=== PATIENT | male | born 1935 | race Caucasian/White ===

== ENCOUNTER 2019-12-19 11:14 | Observation (INO) | payer MEDICARE, BC ==
--- NOTE | 2019-12-19 11:31 | ED ---
Complex/Multi-Sys Presentation - HPI Summary HPI Summary: Pt. is an 84 y.o male who presents to the ER from dialysis for generalized weakness, nausea/vomiting. Pt. resides at home with his . Today was pt.'s first day of dialysis. Dialysis not performed. pt. has no complaints in the ED. Denies cp, sob, abd. pain, fever, cough. Sxs are moderate in severity. Past medical hx of HLD, GERD, DM, hypothyroid, atrial fluter. Anticoagulated on Eliquis. - History Of Current Complaint Chief Complaint: EDGeneral Time Seen by Provider: 12/19/19 11:26 Hx Obtained From: Patient, Medical Records - Allergies/Home Medications Allergies/Adverse Reactions: Allergies Allergy/AdvReac Type Severity Reaction Status Date / Time No Known Allergies Allergy Verified 12/19/19 11:47 Home Medications: Home Medications Acetaminophen TAB* [Tylenol TAB*] 325 mg PO Q6H PRN 12/19/19 [History Confirmed 12/19/19] Apixaban* [Eliquis*] 5 mg PO BID 12/19/19 [History Confirmed 12/19/19] Aspirin EC TAB* [Ecotrin EC Low Dose 81 MG*] 81 mg PO DAILY 12/19/19 [History Confirmed 12/19/19] Citalopram TAB* [CeleXA TAB*] 10 mg PO DAILY 12/19/19 [History Confirmed ] Dextran 70/Hypromellose Tears [Natural Balance Tears Eye Drop] 1 drop BOTH EYES BID 12/19/19 [History Confirmed 12/19/19] Docusate CAP* [Colace Cap*] 200 mg PO Q12H PRN 12/19/19 [History Confirmed 12/19] Epoetin Deepak-Epbx [Retacrit] 10,000 unit IV MOWEFR 12/19/19 [History Confirmed 12/19/19] Folic Acid TAB* [Folvite TAB*] 1 mg PO DAILY 12/19/19 [History Confirmed ] Insulin ASPART (NF) [Novolog 100 units/ml 10 ml VIAL (NF)] 0 units SUBCUT ACHS 12/19/19 [History Confirmed 12/19/19] Insulin GLARGINE(*) [Lantus 100 unist/ml 10 ml VIAL (*)] 30 units SUBCUT BEDTIME 12/19/19 [History Confirmed 12/19/19] Ipratropium/Albuterol Sulfate [Iprat-Albut 0.5-3(2.5) mg/3 ml] 3 ml INH Q4H PRN 12/19/19 [History Confirmed 12/19/19] Levothyroxine TAB* [Synthroid TAB*] 112 mcg PO DAILY 12/19/19 [History Confirmed 12/19/19] Omeprazole CAP (NF) [Prilosec CAP* 20 MG] 20 mg PO DAILY 12/19/19 [History Confirmed 12/19/19] Simvastatin TAB(NF) [Zocor(NF)] 20 mg PO BEDTIME 12/19/19 [History Confirmed 05/02] Tamsulosin CAP* [Flomax CAP*] 0.4 mg PO BEDTIME 12/19/19 [History Confirmed 05/02] hydrALAZINE TAB* [Apresoline TAB*] 10 mg PO TID 12/19/19 [History Confirmed 05/02] PMH/Surg Hx/FS Hx/Imm Hx Previously Healthy: Yes Infectious Disease History: No Infectious Disease History: Denies: Traveled Outside the [place] in Last 30 Days - Family History Known Family History: Positive: Non-Contributory - Social History Occupation: Retired Lives: With Family Alcohol Use: None Substance Use Type: Reports: None Smoking Status (MU): Former Smoker Review of Systems Constitutional: Negative Negative: Fever Cardiovascular: Negative Negative: Palpitations, Chest Pain Respiratory: Negative Negative: Shortness Of Breath, Cough Positive: Vomiting. Negative: Abdominal Pain, Diarrhea, Nausea Neurological: Negative All Other Systems Reviewed And Are Negative: Yes Physical Exam Triage Information Reviewed: Yes Vital Signs On Initial Exam: Initial Vitals Temp Pulse Resp BP Pulse Ox 97.9 F 59 22 131/56 92 12/19/19 11:23 12/19/19 11:23 12/19/19 11:23 12/19/19 11:23 12/19/19 11:23 Vital Signs Reviewed: Yes Appearance: Positive: Well-Appearing - Pt. sitting up in bed in NAD. Skin: Positive: Warm, Dry Eyes: Positive: Normal, EOMI, EDENILSON Neck: Positive: Supple Respiratory/Lung Sounds: Positive: Breath Sounds Present Cardiovascular: Positive: Normal, RRR Abdomen Description: Positive: Nontender, Soft Musculoskeletal: Negative: Edema Left, Edema Right Neurological: Positive: Normal, Alert, Oriented to Person Place, Time, CN Intact II-III Psychiatric: Positive: Affect/Mood Appropriate Procedures - Sedation Patient Received Moderate/Deep Sedation with Procedure: No Diagnostics - Vital Signs Vital Signs Temp Pulse Resp BP Pulse Ox 12/19/19 11:23 97.9 F 59 22 131/56 92 - Laboratory Result Diagrams: 12/19/19 11:51 12/19/19 11:51 Lab Statement: Any lab studies that have been ordered have been reviewed, and results considered in the medical decision making process. Complex Multi-Symp Course/Dx Course Of Treatment: ECG done at 1140 shows atrial flutter at a rate of 58, normal axis, 4:1 AV block, hyperacute t waves, no STEMI, no comparison. Pt. from dialysis for generalized weakness and episode of vomting. Afebrile. Stable BP. O2 saturation in low 90's on RA. No signs of respiratory distress. Spoke with dialysis clinic and they are unable to perform pt.'s dialysis today. Case discussed with Dr. Page, compliance representative, and she feels pt. okay to wait and start dialysis tomorrow. Case discussed with Dr. Oreilly who agrees for admission. - Diagnoses Provider Diagnoses: Generalized weakness, ESRD (end stage renal disease) Discharge ED - Sign-Out/Discharge Documenting (check all that apply): Patient Departure - Discharge Plan Condition: Stable Disposition: ADMITTED TO [facility] - Billing Disposition and Condition Condition: STABLE Disposition: Admitted to [facility] - Attestation Statements Provider Attestation: pt seen by midlevel provider independently, based on their assessment, it was not necessary for me to evaluate the patient but I was available for consultation. I did not form a physician-patient relationship with the patient. The chart however, has been reviewed.
[2019-12-19 12:02] LABS: ABS Eosinophils 0.1 10^3/ul (0-0.6); ABS Lymphocytes 1.2 10^3/ul (1.0-4.8); ABS Monocytes 0.8 10^3/ul (0-0.8); ABS Neutrophils 5.8 10^3/ul (1.5-7.7); Eosinophil % 1.1 %; Hematocrit 32 % (42-52); Hemoglobin 10.5 g/dL (14.0-18.0); Mean Corpuscular HGB Conc 33 g/dL (31-36); Mean Corpuscular Hemoglobin 29 pg (27-31); Mean Corpuscular Volume 88 fL (80-94); Mean Platelet Volume 8.5 fL (7.4-10.4); Platelet Count 230 10^3/uL (150-450); Red Blood Count 3.62 10^6 /uL (4.18-5.48); Red Cell Distribution Width 16 % (10-15); White Blood Count 7.9 10^3/uL (3.5-10.8)
[2019-12-19 12:13] LABS: Activated Partial Thrombo Time 33.9 seconds (26.0-38.0); INR 1.42 (0.82-1.09)
[2019-12-19 12:19] LABS: Albumin 3.1 g/dL (3.2-5.2); Albumin/Globulin Ratio 0.8 (1-3); Calcium 8.8 mg/dL (8.6-10.3); EGFR African American 8.9 (>60); EGFR Non-African American 7.3 (>60); Magnesium 2.2 mg/dL (1.9-2.7); Potassium 4.9 mmol/L (3.5-5.0); Total Bilirubin 0.7 mg/dL (0.2-1.0); Total Protein 7.1 g/dL (6.4-8.9)
[2019-12-19 12:21] LABS: Troponin I 0.02 ng/mL (<0.03)
[2019-12-19 12:35] LABS: TSH (Thyroid Stimulating Horm) 1.78 mcIU/mL (0.34-5.60)
[2019-12-19 13:50] LABS: Urine Appearance Cloudy; Urine Color Amber; Urine Ketones Negative (Negative); Urine Protein 1+(30 mg/dL) (Negative); Urine Urobilinogen Negative (Negative)
[2019-12-19 13:51] LABS: Urine Bilirubin Negative (Negative); Urine Blood 1+ (Negative); Urine Glucose Negative (Negative); Urine Nitrite Negative (Negative)
[2019-12-19 13:58] LABS: Urine Bacteria 1+ (Absent); Urine Transitional Epithelial Present (Absent); Urine White Blood Cell 1+(6-10/hpf) (Absent)
[2019-12-19] MEDS ORDERED: Acetaminophen TAB* 325 MG PO PRN ×2 (13:59→14:05)
[2019-12-19] MEDS ORDERED: Albuterol 2.5 MG/3 ML NEB.SOL* (0.083%) INH PRN (13:59)
[2019-12-19] MEDS ORDERED: Al Hydrox/Mg Hydrox/Simet LIQ* 30 ML UDC PO PRN (13:59)
[2019-12-19] MEDS ORDERED: Docusate CAP* 100 MG PO PRN (14:05)
[2019-12-19] MEDS ORDERED: Ondansetron INJ* 2 MG/ML VIAL IV PRN (14:08)
[2019-12-19] MEDS ORDERED: Dextrose 50% Syringe 50 ML* 25 GM/50 ML SYRINGE IV PUSH PRN (14:09)
--- NOTE | 2019-12-19 16:06 | HP ---
CC: Primary care provider; [facility] * HISTORY AND PHYSICAL: DATE OF ADMISSION: 12/19/19 PRIMARY CARE PROVIDER: Provider from [facility]. WORKERS' COMPENSATION HEARINGS OFFICER: The patient stated it is Lary Riley, but he was unable to give me the name. CHIEF COMPLAINT: An episode of nausea and vomiting. Of note, the patient himself does not remember what happened and he is not complaining of anything right now. HISTORY OF PRESENT ILLNESS: Jose Alberto Chacon is an 84-year-old male who was hospitalized at [facility], apparently started on dialysis and discharged to [facility] on 12/16/19. Just before his discharge , he was dialyzed and today was his first day of dialysis in [place]. He was brought in via [facility] to our dialysis suite. He was placed in the waiting room and when he was flipped over and vomited once, the nurse noted that he may not be fit for dialysis and sent him to the ED for evaluation. Here, he is comfortable, denies any pain or shortness of breath. He is a very poor historian. Please also note that the patient is a very poor historian likely due to dementia. I called to get medical records from [facility] that are all pending , but I spoke with the patient's nurse who is able to give me the information above. She also stated that the patient had nausea in the morning and he was given ODT Zofran prior to going to dialysis. He has had no problems overnight or prior to that. I also tried to call the patient's who resides in [place] and unfortunately when I called, there was no response. Either way, the patient missed his dialysis today and he appears to be in slight fluid overload on his chest x-ray with oxygen saturation 89% on room air and he is going to be placed on overnight observation to have inpatient dialysis before going back to [facility] tomorrow. PAST MEDICAL HISTORY: Obtained from the patient was very unreliable and includes: 1. End-stage renal disease, on dialysis with dialysis catheter placed recently in the left subclavian area. 2. Diabetes, type 2. 3. Hypertension. 4. Hypothyroidism. 5. BPH. 6. Coronary artery disease status post coronary artery bypass grafting in the past. 7. History of left knee replacement twice. 8. Right shoulder surgery. MEDICATIONS: At home include: 1. Simvastatin 20 mg at bedtime. 2. Epogen 10,000 units Mondays, Wednesdays, and Fridays. 3. Omeprazole 20 mg daily. 4. Insulin NovoLog sliding scale. 5. Levothyroxine 112 mcg daily. 6. Lantus 30 units at night. 7. Hydralazine 10 mg 3 times a day. 8. Flomax 0.4 mg at bedtime. 9. Folic acid 1 mg daily. 10. Eliquis 5 mg b.i.d., which appears to be higher than recommended dose for the patient with end-stage renal disease with an age of [age] years old. 11. Colace 200 mg every 12 hours p.r.n. 12. Celexa 10 mg daily. 13. Natural Balance Tears eye drops 1 drop both eyes b.i.d. 14. Aspirin 81 mg daily. 15. Acetaminophen on a p.r.n. basis. ALLERGIES: No known drug allergies. FAMILY HISTORY: The patient stated both parents in their 80s of "old age. " SOCIAL HISTORY: The patient stated that he has not smoked "ever since World War II." He drinks rarely. He denies any drug use. He lives in [place] with his . Currently, he is a resident at [facility]. The patient himself is not aware that he is at [facility]. He thinks he lives at [place] and he is unsure how he got to our dialysis unit. REVIEW OF SYSTEMS: Please see history of present illness. All the remaining 12 systems were reviewed with the patient and were otherwise negative. He is a very poor historian. PHYSICAL EXAMINATION GENERAL: The patient is a pleasant 84-year-old male who knows that he is 84 years old, he does not know the date, he does not know why he is here, and he is aware that he is in the hospital, but does not know which. He is pleasant and cooperative with evaluation. VITAL SIGNS: Blood pressure of 179/80, heart rate of 58 and regular, respiratory rate 24, oxygen saturation 89% on room air, temperature of 97.9. HEENT: Head: Atraumatic, normocephalic. Eyes: Pupils are equal, reactive to light and accommodation. Oropharynx clear. Mucosa moist. NECK: Supple. No JVD. No bruits bilaterally. RESPIRATORY: Crackles at bilateral bases. CARDIOVASCULAR: Regular rate and rhythm. No murmur. ABDOMEN: Distended mildly, soft, nontender. Bowel sounds are present in all 4 quadrants. EXTREMITIES: There is no edema. Pulses are +2 bilaterally. No clubbing or cyanosis. NEUROLOGIC: On neuro evaluation, speech clear. Cranial nerves II through XII grossly intact. Motor strength is 5/5 bilaterally. SKIN: On evaluation of the skin, the patient has left-sided subclavian port inserted for dialysis, covered with postop dressings. No evidence of skin infection around. DIAGNOSTIC STUDIES/LAB DATA: Laboratory data and studies performed in the ED showed, EKG shows atrial fibrillation with a heart rate of 58 beats per minute. I was not able to compare to prior EKGs as we do not have any in the system. The patient's portable chest x-ray, impression, "low lung volumes, lines and tubes as above, no active cardiopulmonary disease." Lab tests showed sodium of 129, potassium of 4.9, chloride 94, carbon dioxide 24 , BUN 15, creatinine 0.16. Liver function tests unremarkable. Alkaline phosphatase of 137, AST mildly elevated at 41. Brain natriuretic peptide was 123. TSH of 1.7. White blood cell count of 7.9, hemoglobin 10.5, hematocrit of 32, and platelets of 230. INR of 1.42. ASSESSMENT AND PLAN: 1. Nausea and vomiting. At this point, the patient complains of no further nausea and vomiting. We will attempt to start diet and see how he behaves. He probably would be able to be discharged to [facility], but he is slightly hypoxemic and he needs dialysis. Unfortunately, he missed his dialysis spot today and he would not be able to get to dialysis until tomorrow inpatient. For the hypoxemia, he is going to be held observation overnight. He will be dialyzed tomorrow and likely go back to [facility]. 2. The hypoxemia is likely due to vascular congestion related to need of dialysis. 3. For his diabetes, the patient is going to be placed on lower dose of insulin Lantus at night. The patient is going to be continued on insulin sliding scale. 4. For his atrial flutter that is rate controlled, the patient's apixaban is going to be changed to a dose of 2.5 b.i.d. as per recommendations for patients with renal failure and advanced age. 5. The patient is slightly hyponatremic. Likely due to the need of dialysis. I will not attempt to correct that. That could be corrected with dialysis tomorrow. 6. The patient has anemia. Likely due to end-stage renal disease. He is on Epogen with every dialysis. 7. The patient's altered mentation appears to be chronic. I was unable to confirm it. I am getting medical records from [facility]. I will get CT of the brain to rule out any acute issues since the patient is on anticoagulation. 8. For DVT prophylaxis, the patient is going to be placed on Eliquis. 9. The patient's code status for the time being is going to be full. I was unable to contact the patient's to clarify it and we have not received any medical records from [facility] yet. TIME SPENT: Approximately 72 minutes was spent on admission of this patient, more than half of that time was spent [id number] with the patient during the interview and physical exam. [id number]/[facility] #: [id number] EDUAR
[2019-12-19] MEDS: Insulin LISPRO* 1 UNITS UNIT SUBCUT SCH ×2 (17:50→21:51)
[2019-12-19] MEDS ORDERED: Tamsulosin CAP* 0.4 MG PO SCH (21:00)
[2019-12-19] MEDS ORDERED: Insulin GLARGINE(*) 1 UNITS UNIT SUBCUT SCH ×2 (21:00)
[2019-12-19] MEDS: hydrALAZINE TAB* 10 MG PO SCH (21:52)
[2019-12-19] MEDS: Dextran 70/Hypromellose Tears Eye Drops 15 ml BTL (for Artificials Tears) BOTH EYES SCH (21:55)
[2019-12-20] MEDS ORDERED: Levothyroxine TAB* 112 MCG TAB PO SCH (06:00)
[2019-12-20 06:35] LABS: ABS Basophils 0.1 10^3/ul (0-0.2); ABS Eosinophils 0.2 10^3/ul (0-0.6); ABS Lymphocytes 1.4 10^3/ul (1.0-4.8); ABS Monocytes 0.6 10^3/ul (0-0.8); ABS Neutrophils 3.6 10^3/ul (1.5-7.7); Eosinophil % 2.6 %; Hematocrit 31 % (42-52); Hemoglobin 10.1 g/dL (14.0-18.0); Lymphocyte % 23.8 %; Mean Corpuscular HGB Conc 33 g/dL (31-36); Mean Corpuscular Hemoglobin 29 pg (27-31); Mean Corpuscular Volume 88 fL (80-94); Mean Platelet Volume 8.2 fL (7.4-10.4); Platelet Count 218 10^3/uL (150-450); Red Blood Count 3.46 10^6 /uL (4.18-5.48); Red Cell Distribution Width 16 % (10-15); White Blood Count 5.9 10^3/uL (3.5-10.8)
[2019-12-20 07:10] LABS: BUN/Creatinine Ratio 6.9 (8-20); Calcium 8.6 mg/dL (8.6-10.3); EGFR African American 7.4 (>60); EGFR Non-African American 6.1 (>60); Potassium 4.8 mmol/L (3.5-5.0)
[2019-12-20] MEDS ORDERED: Folic Acid TAB* 1 MG PO SCH (09:00)
[2019-12-20] MEDS ORDERED: Aspirin EC TAB* 81 MG TAB.EC PO SCH (09:00)
[2019-12-20] MEDS ORDERED: Pantoprazole TAB * 40 MG TAB PO SCH (09:00)
[2019-12-20] MEDS ORDERED: Citalopram TAB* 10 MG PO SCH (09:00)
[2019-12-20] MEDS: hydrALAZINE TAB* 10 MG PO SCH ×2 (09:36→15:19)
[2019-12-20] MEDS: Insulin LISPRO* 1 UNITS UNIT SUBCUT SCH ×3 (09:36→19:22)
[2019-12-20] MEDS: Dextran 70/Hypromellose Tears Eye Drops 15 ml BTL (for Artificials Tears) BOTH EYES SCH (09:37)
--- NOTE | 2019-12-20 10:51 | CONSULT ---
Consult Consult: Reason for consult: ESRD need for HD Requesting consult: Dr. Sandy Oreilly MD History of present illness: Mr. Chacon is a very nice 84 yo gentleman who was transferred to [facility] HD center yesterday , after being hospitalized at [facility]. He was started on HD during this hospitalization , and [facility] Previously he was living at home with his . his first dialysis treatment was supposed to be yesterday. when he arrived at the dialysis unit, he was sick, nauseous and throwing up so the dialysis staff send him to the ER for evaluation. he is a new patient to me , he has not been a patient of [facility]. patient is not a good historian. history taken from discussions with Dr. Oreilly and review of medical records. he states that he has a history of DM and HTN , also CAD s/p CABG. 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 Hypertension End-stage kidney disease. He has a permanent catheter placed in the left subclavian area is an access. Hypothyroidism BPH Coronary artery disease. Past surgical history Left knee replacement twice Coronary artery bypass grafting Family history: Both parents of old age in their 80s He has a son with diabetes mellitus type 2 He has 4 siblings and they are all healthy per his recollection Social History: Currently he lives at [facility] in [place]. Previously he was living at home with his . He is a previous smoker. He smoked for a short period of time when he was young. He has not smoked "since World War II" drinks occasionally. No recreational drugs. Allergies: NKDA Home Medications Medication Instructions Recorded Confirmed Type Acetaminophen TAB* [Tylenol TAB*] 325 mg PO Q6H PRN 12/19/19 12/19/19 History Aspirin EC TAB* [Ecotrin EC Low 81 mg PO DAILY 12/19/19 12/19/19 History Dose 81 MG*] Citalopram TAB* [Celexa TAB*] 10 mg PO DAILY 12/19/19 12/19/19 History Dextran 70/Hypromellose Tears 1 drop BOTH EYES BID 12/19/19 12/19/19 History [Natural Balance Tears Eye Drop] Docusate CAP* [Colace Cap*] 200 mg PO Q12H PRN 12/19/19 12/19/19 History Epoetin Deepak-Epbx [Retacrit] 10,000 unit IV MOWEFR 12/19/19 12/19/19 History Folic Acid TAB* [Folvite TAB*] 1 mg PO DAILY 12/19/19 12/19/19 History Insulin ASPART (NF) [Novolog 100 0 units SUBCUT ACHS 12/19/19 12/19/19 History units/ml 10 ml VIAL (NF)] Insulin GLARGINE(*) [Lantus 100 30 units SUBCUT BEDTIME 12/19/19 12/19/19 History unist/ml 10 ml VIAL (*)] Ipratropium/Albuterol Sulfate 3 ml INH Q4H PRN 12/19/19 12/19/19 History [Iprat-Albut 0.5-3(2.5) mg/3 ml] Levothyroxine TAB* [Synthorid 112 112 mcg PO DAILY 12/19/19 12/19/19 History MCG TAB*] Omeprazole CAP (NF) [Prilosec CAP* 20 mg PO DAILY 12/19/19 12/19/19 History 20 MG] Simvastatin TAB(NF) [Zocor 20 MG 20 mg PO BEDTIME 12/19/19 12/19/19 History (NF)] Tamsulosin CAP* [Flomax CAP*] 0.4 mg PO BEDTIME 12/19/19 12/19/19 History hydrALAZINE TAB* [Apresoline TAB*] 10 mg PO TID 12/19/19 12/19/19 History Apixaban* [Eliquis*] 2.5 mg PO BID #0 12/20/19 12/19/19 Rx hospital active medications: Acetaminophen (Tylenol Tab*) 650 mg PO Q4H PRN PRN Reason: SHORTNESS OF BREATH Acetaminophen (Tylenol Tab*) 325 mg PO Q6H PRN PRN Reason: PAIN-MODERATE/TEMP >/= 100.4 Al Hydrox/Mg Hydrox/Simethicone (Maalox Plus*) 30 ml PO Q6H PRN PRN Reason: INDIGESTION Albuterol (Ventolin 2.5 Mg/3 Ml Neb.Frida*) 2.5 mg INH [id number] AWAKE PRN PRN Reason: sob/wheezing Artificial Tears (Natural Balance Tears Eye Drop) 1 drop BOTH EYES BID [facility] Last Admin: 12/20/19 09:37 Dose: 1 drop Aspirin (Aspirin Ec Tab*) 81 mg PO DAILY [facility] Last Admin: 12/20/19 09:36 Dose: 81 mg Citalopram Hydrobromide (Celexa Tab*) 10 mg PO DAILY [facility] Last Admin: 12/20/19 09:36 Dose: 10 mg Dextrose (D50w Syringe 50 Ml*) 12.5 gm IV PUSH .FOR FS < 60 - SS PRN PRN Reason: FS < 60 Docusate Sodium (Colace Cap*) 200 mg PO Q12H PRN PRN Reason: CONSTIPATION Folic Acid (Folvite Tab*) 1 mg PO DAILY [facility] Last Admin: 12/20/19 09:36 Dose: 1 mg Hydralazine HCl (Apresoline Tab*) 10 mg PO TID [facility] Last Admin: 12/20/19 09:36 Dose: 10 mg Insulin Glargine (Lantus(*)) 20 units SUBCUT BEDTIME [facility] Last Admin: 12/19/19 21:49 Dose: 20 unit Insulin Human Lispro (Humalog*) 0 units SUBCUT ACHS [facility]; Protocol Last Admin: 12/20/19 09:36 Dose: 4 unit Levothyroxine Sodium (Synthroid Tab*) 112 mcg PO DAILY@0600 [facility] Last Admin: 12/20/19 05:40 Dose: 112 mcg Ondansetron HCl (Zofran Inj*) 4 mg IV Q8H PRN PRN Reason: NAUSEA Pantoprazole Sodium (Protonix Tab*) 40 mg PO DAILY [facility] Last Admin: 12/20/19 09:36 Dose: 40 mg Tamsulosin HCl (Flomax Cap*) 0.4 mg PO BEDTIME [facility] Last Admin: 12/19/19 21:52 Dose: 0.4 mg Physical exam: Temp Pulse Resp BP SpO2 FiO2 97.5 F 58 16 123/52 100 12/20/19 07:24 12/20/19 07:24 12/20/19 08:00 12/20/19 07:24 12/20/19 07:24 Constitutional: lying in bed during dialysis in no acute distress, pleasant and conversant. Head: Atraumatic and normocephalic. Nose, lips and ears appear normal. Eyes: moist conjunctivae, no ptosis, pupils are equal. Neck: Supple, full range of motion, non-tender, no masses, trachea midline, no thyromegaly. Respiratory: Chest is clear to auscultation with good respiratory effort. Cardiovascular: Heart auscultation shows normal S1-S2, regular rate and rhythm, no murmur rubs or gallops. No peripheral edema. Gastrointestinal: Abdomen is soft, nontender and nondistended. No hepatosplenomegaly or masses appreciated. Musculoskeletal: No digital cyanosis or clubbing. No joint swelling or tenderness. Skin: No skin rashes, ulcers or lesions. changes of stasis dermatitis in both lower extremities below the knees. Normal turgor and temperature. Neurologic: Speech fluent But soft, no tremor, grossly nonfocal. Psychiatric: Appropriate affect, alert and oriented 3, poor memory Laboratory Last Values WBC 5.9 10^3/uL (3.5-10.8) 12/20/19 06:08 RBC 3.46 10^6 /uL (4.18-5.48) L 12/20/19 06:08 Hgb 10.1 g/dL (14.0-18.0) L 12/20/19 06:08 Hct 31 % (42-52) L 12/20/19 06:08 MCV 88 fL (80-94) 12/20/19 06:08 MCH 29 pg (27-31) 12/20/19 06:08 MCHC 33 g/dL (31-36) 12/20/19 06:08 RDW 16 % (10-15) H 12/20/19 06:08 Plt Count 218 10^3/uL (150-450) 12/20/19 06:08 MPV 8.2 fL (7.4-10.4) 12/20/19 06:08 Neut % (Auto) 61.3 % 12/20/19 06:08 Lymph % (Auto) 23.8 % 12/20/19 06:08 Dunn % (Auto) 10.9 % 12/20/19 06:08 Eos % (Auto) 2.6 % 12/20/19 06:08 Baso % (Auto) 1.4 % 12/20/19 06:08 Absolute Neuts (auto) 3.6 10^3/ul (1.5-7.7) 12/20/19 06:08 Absolute Lymphs (auto) 1.4 10^3/ul (1.0-4.8) 12/20/19 06:08 Absolute Monos (auto) 0.6 10^3/ul (0-0.8) 12/20/19 06:08 Absolute Eos (auto) 0.2 10^3/ul (0-0.6) 12/20/19 06:08 Absolute Basos (auto) 0.1 10^3/ul (0-0.2) 12/20/19 06:08 Absolute Nucleated RBC 0.0 10^3/ul 12/20/19 06:08 Nucleated RBC % 0.0 12/20/19 06:08 INR (Anticoag Therapy) 1.42 (0.82-1.09) H 12/19/19 11:51 APTT 33.9 seconds (26.0-38.0) 12/19/19 11:51 Sodium 131 mmol/L (135-145) L 12/20/19 06:08 Potassium 4.8 mmol/L (3.5-5.0) 12/20/19 06:08 Chloride 95 mmol/L (101-111) L 12/20/19 06:08 Carbon Dioxide 24 mmol/L (22-32) 12/20/19 06:08 Anion Gap 12 mmol/L (2-11) H 12/20/19 06:08 BUN 58 mg/dL (6-24) H 12/20/19 06:08 Creatinine 8.41 mg/dL (0.67-1.17) H 12/20/19 06:08 Est GFR ( Amer) 7.4 (>60) 12/20/19 06:08 Est GFR (Non-Af Amer) 6.1 (>60) 12/20/19 06:08 BUN/Creatinine Ratio 6.9 (8-20) L 12/20/19 06:08 Glucose 184 mg/dL (70-100) H 12/20/19 06:08 POC Glucose (mg/dL) 202 mg/dL (70-100) H 12/20/19 08:15 Lactic Acid 1.4 mmol/L (0.5-2.0) 12/19/19 11:51 Calcium 8.6 mg/dL (8.6-10.3) 12/20/19 06:08 Magnesium 2.2 mg/dL (1.9-2.7) 12/19/19 11:51 Total Bilirubin 0.70 mg/dL (0.2-1.0) 12/19/19 11:51 AST 41 U/L (13-39) H 12/19/19 11:51 ALT 36 U/L (7-52) 12/19/19 11:51 Alkaline Phosphatase 137 U/L (34-104) H 12/19/19 11:51 Troponin I 0.02 ng/mL (<0.03) 12/19/19 11:51 B-Natriuretic Peptide 223 pg/mL (<=100) H 12/19/19 11:51 Total Protein 7.1 g/dL (6.4-8.9) 12/19/19 11:51 Albumin 3.1 g/dL (3.2-5.2) L 12/19/19 11:51 Globulin 4.0 g/dL (2-4) 12/19/19 11:51 Albumin/Globulin Ratio 0.8 (1-3) L 12/19/19 11:51 TSH 1.78 mcIU/mL (0.34-5.60) 12/19/19 11:51 Urine Color Maura 12/19/19 13:02 Urine Appearance Cloudy 12/19/19 13:02 Urine pH 5 (5-9) 12/19/19 13:02 Ur Specific Hewitt 1.030 (1.010-1.030) 12/19/19 13:02 Urine Protein 1+(30 mg/dl) (Negative) A 12/19/19 13:02 Urine Ketones Negative (Negative) 12/19/19 13:02 Urine Blood 1+ (Negative) A 12/19/19 13:02 Urine Nitrate Negative (Negative) 12/19/19 13:02 Urine Bilirubin Negative (Negative) 12/19/19 13:02 Urine Urobilinogen Negative (Negative) 12/19/19 13:02 Ur Leukocyte Esterase 1+ (Negative) A 12/19/19 13:02 Urine WBC (Auto) 1+(6-10/hpf) (Absent) A 12/19/19 13:02 Ur Transition Epith Cell Present (Absent) A 12/19/19 13:02 Urine Bacteria 1+ (Absent) A 12/19/19 13:02 Urine Glucose Negative (Negative) 12/19/19 13:02 Assessment and plan: 1. End-stage kidney disease secondary to diabetes mellitus type 2 and hypertension. Arranged for in house hemodialysis today. 2. Hypertension well controlled with no changes 3. Diabetes mellitus type 2 per primary 4. Dementiamild 5. GI upset/nausea. This resolved with medical management. Doubt that this was related to uremia.
[2019-12-20] MEDS ORDERED: Alteplase (CATHFLO)* 2 MG VIAL IV ONE (11:00)
--- NOTE | 2019-12-20 11:34 | TRS ---
TRANSFER SUMMARY: DATE OF ADMISSION: DATE OF TRANSFER: 12/20/19 HISTORY: This 84-year-old man is a resident of [facility]. He was admitted there onl y on 12/16/19. He was started on dialysis at [facility] in the past month I believe. His first day of dialysis in [place] was 12/19/19 in the dialysis suite, he vomited and he was sent to the ED for evaluation. The patient is a poor historian due to dementia. He was able to give some histo ry, but was very hazy about dates and his medical history. The patient did well here. He was given his usual medications. He is going to have hemodialysis in the hospital before discharge. He had no more nausea and vomiting. He ate breakfast well. Possibly, he has diabetic gastropathy, which may occur every now and then. I have adjusted his apixaban dose because his age is over 80 and his creatinine is over 1.5. I would recommend 2.5 mg b.i.d. I am not sure what the indication for apixaban is. We do not have any adilia rds and the patient could not answer that question either. FINAL DIAGNOSES: 1. Nausea and vomiting, possible diabetic gastropathy. 2. End-stage renal disease, on hemodialysis. 3. Diabetes. 4. Hypertension. 5. Hypothyroidism. 6. Dementia. 7. Benign prostatic hyperplasia. 8. Coronary artery disease status post coronary artery bypass graft. 9. Osteoarthritis, status post left knee replacement x2. DISCHARGE MEDICATIONS: 1. Simvastatin 20 mg h.s. 2. Epoetin 10,000 units Monday, Monday, and Monday. 3. Omeprazole 20 mg daily. 4. NovoLog insulin per schedule. 5. Levothyroxine 112 mcg daily. 6. Glargine insulin 30 units at bedtime. 7. Ipratropium albuterol 3 mL every 4 hours p.r.n. 8. Hydralazine 10 mg t.i.d. 9. Tamsulosin 0.4 mg h.s. 10. Folic acid 1 mg daily. 11. Docusate 200 mg b.i.d. p.r.n. 12. Citalopram 10 mg daily. 13. Natural Balance Tears eye drops, 1 drop both eyes b.i.d. 14. Aspirin 81 mg daily. 15. Acetaminophen every 6 hours p.r.n. 16. Apixaban 2.5 mg b.i.d. CONDITION ON DISCHARGE: Stable. DISPOSITION ON DISCHARGE: Discharged to return to [facility]. [id number]/[facility] #: [id number]
--- NOTE | 2019-12-20 12:38 | PN ---
Progress Note - Progress Note Date of Service: 12/20/19 Note: chief complaint: End-stage kidney disease now initiated on dialysis. Interval history: Patient admitted for GI upset. This cleared since admission. Receiving hemodialysis today because of his lost treatment yesterday. For full history please refer to previously entered consult. 1. End-stage kidney disease secondary to diabetes mellitus type 2 and hypertension. Newly started on dialysis. Hemodialysis today as he missed his treatment yesterday. I saw the patient during dialysis he was stable but with poor catheter function when and the line were reversed. Decided to lock the catheter with TPA for half an hour and restart dialysis. 2000 units bolus of heparin. Discusses dialysi, 2.5 calcium, sodium 140, bicarb 32, temperature 36, 2 L volume removal. Patient is stable and pleasant at the time of my exam.
[2019-12-20 15:24] VITALS: BP 118/45
--- NOTE | 2019-12-20 16:27 | TRS ---
TRANSFER SUMMARY ADDENDUM Dialysis runs very poorly due to low flow in his catheter. Dr. Page consulted on him. He will come b ack to the hospital, to [facility] on 12/23/19 at 7:30. He is to be n.p.o. after midnight th e night before. He will not take any apixaban over the weekend, but this can be resumed at the recomm ended dose of 2.5 mg b.i.d. following the procedure. His Lantus dose has been adjusted downward quite a bit here. Depending on how he responding to the lower dose, the dose may be reduced further on 08/02, the day before his procedure of 12/23/19 as he will be n.p.o. after midnight for the procedure on 12/23/19. His next dialysis treatment will be 12/24/19. [id number]/[facility] #: [id number]
--- NOTE | 2019-12-22 13:56 | ED ---
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 RN states will pass on all information to provider Currently states pt is asymptomatic, VS stable and has had no fevers Patient Communication/Plan: Discussed with RN I recommend catheter change Recommend antibiotics only if pt symptomatic and to return to the ED if so - Faxed culture sheet to Jose Bryant Provider Diagnoses: Generalized weakness, ESRD (end stage renal disease)
== END 2019-12-20 17:30 ==
LOC: ED 11:14 → MED 13:59
PROVIDERS: ADMIT Internal Medicine; ATTEND Internal Medicine
DX: R11.2 Nausea with vomiting, unspecified (principal); I12.0 Hypertensive chronic kidney disease with stage 5 chronic kidney disease or end stage renal disease; E11.22 Type 2 diabetes mellitus with diabetic chronic kidney disease; N18.6 End stage renal disease; E03.9 Hypothyroidism, unspecified; N40.0 Benign prostatic hyperplasia without lower urinary tract symptoms; I25.10 Atherosclerotic heart disease of native coronary artery without angina pectoris; K21.9 Gastro-esophageal reflux disease without esophagitis; Z79.4 Long term (current) use of insulin; E78.5 Hyperlipidemia, unspecified; I48.92 Unspecified atrial flutter; Z79.01 Long term (current) use of anticoagulants; Z79.899 Other long term (current) drug therapy; Z96.652 Presence of left artificial knee joint; Z79.82 Long term (current) use of aspirin; Z99.2 Dependence on renal dialysis; Z95.5 Presence of coronary angioplasty implant and graft; Z87.891 Personal history of nicotine dependence; Z79.890 Hormone replacement therapy; R94.31 Abnormal electrocardiogram [ECG] [EKG]
CPT/HCPCS: 36415; 70450; 71045; 80048; 80053; 81003; 81015; 83605; 83735; 83880; 84443; 84484; 85025; 85610; 85730; 87077; 87086; 87186; 87641; 93005; 99284; A9270-GY; G0378; J2997

== ENCOUNTER → 2019-12-23 11:36 | Day surgery (SDC) | payer BC, MEDICARE ==
[~2019-12-23 11:36] MED LIST: Clindamycin 600 MG/D5W BAG(*) 600 MG/50 ML BAG IV ONE; Heparin 2 UNITS/ML IVPREMIX* 1,000 ML IV ONE; Lidocaine 1% INJ* 10 MG/ML 30 ML SDV ONE; Midazolam* 1 MG/ML 5 ML VIAL (5 MG) ONE; fentaNYL* 50 MCG/ML 2 ML VIAL (100 MCG VIAL) ONE
--- NOTE | 2019-12-23 14:40 | OP ---
Operative Report - Blank - Operative Report Date of Operation: 12/23/19 Note: Procedure Note Tunneled HD Catheter placement Note: Performed by Dr. Tiff Perez, [facility] Nephrology 12/23/2019 Right Internal Jugular Tunneled Hemodialysis Catheter Placement Note: Procedure indication: ESRD, needs Hemodialysis assisted Access. Consent was obtained, in chart. Patient understands risks, benefits, alternatives and wants to proceed. Rt IJV patency was checked by US. Following strict hand hygiene and standard sterile precautions, a full sterile attire for myself and all personnel involved in the procedure, including a gown , cap, face mask with an eye shield, and double sterile gloves. The procedure started with 2 ID time out after marking the new proposed venotomy site. Patient was put in Trendelenburg position. Vascular US was used during the procedure. Right Neck and Chest were prepped with 2% Chlorhexidine, and the surgical field was surrounded by sterile surgical towels. A sterile full body drape was placed to cover the patient from head to toe. Rt IJ was chosen. Under real time US guidance the Rt IJV was accessed by a 21-G needle, then a 0.018 micro wire was threaded through the 21-G needle into the vein and the 21- G needle was pulled out, leaving the micro wire in, confirmed in the IJ-SVC by Fluoro, then a 4-Fr sheath and inner stylet were passed over the micro wire into the vein. Both, the micro wire and the inner stylet were removed and the 4- Fr sheath was kept in place. Then, a 0.035 Amplatz wire was passed through the 4 -Fr sheath into the central circulation, confirmed by Fluoro in the Rt Atrium. Skin near the venotomy was nicked using # 11 Blade and extended to 0.5 cm long, then was dilated using a curved Sonia. Bleeding was controlled by pressure over the dilated venotomy site. A 19 cm GlidePath TDC was chosen. The proposed tunnel & exit site were numbed thoroughly with 10 cc of 1% Lidocaine w/o Epi. The exit site was created using # 11 Blade and extended to 0.5 cm long. Exit was dissected bluntly using a curved Sonia. A blunt tunneler was bent and used to pull the GlidePath TDC from the exit site to the venotomy site and was placed just behind the 5-Fr sheath Sequential dilatation of the venotomy using 12 then 14 Fr the 16 Fr dilator and peel away sheath after the 5-Fr sheath was removed. Dilator and wire were removed and the 19 cm GlidePath TDC was fed through the peel away sheath that was peel away carefully. Tip of TDC Catheter seen under Fluoro at the Cavo- atrial junction to Rt Atrium Both ports checked for flow and draw and both worked very well then flushed again with saline and locked with 1:100 in each port. Caps were applied over both ports. The catheter was secured and tethered in place using 2-0 Proline sutures at the exit site. A retention suture was placed using 2-0 Proline too as he was oozing from the exit site. The venotomy site was repaired using 3-0 Vicryl. Complications: None Estimated Bleeding: < 5cc Fluoro Time: 0.1 min IV Contrast: Zero Radiation Exposure: 1 mGy Pre Op Meds: Clindamycin 600 mg IVPB pre Op. Fentanyl: Zero Versed: Zero
--- NOTE | 2019-12-23 14:42 | OP ---
Operative Report - Blank - Operative Report Date of Operation: 12/23/19 Note: Procedure Note Tunneled HD Catheter Removal Note: Performed by Dr. Tiff Perez, [facility] Nephrology 12/23/2019 Left Internal Jugular Tunneled Hemodialysis Catheter Removal Note: Procedure indication: ESRD, Access dysfunctional needs a new access. Consent was obtained Right Internal Jugular Tunneled Hemodialysis Catheter Removal Note: Following strict hand hygiene and standard sterile precautions, using a cap, face mask with an eye shield, and double sterile gloves. Neck and Chest were prepped with 2% Chlorhexidine. Skin over exit site and tunnel were numbed thoroughly using 30 cc of 1% Lidocaine, then using a curved Sonia, the exit site was bluntly dissected and the cuff was freed easily from the fibrin sheath around it. The TDC was pulled out easily. Bleeding was controlled and pressure was applied for 5 min at the exit site and the venotomy. Complications: None Estimated Bleeding: < 5cc Patient tolerated the procedure well.
[2019-12-23 16:04] VITALS: BP 129/60
== END | disposition home or self-care (01) ==
LOC: CHICATH 11:36
PROVIDERS: ATTEND Internal Medicine Nephrology
DX: T82.898A Other specified complication of vascular prosthetic devices, implants and grafts, initial encounter (principal); N18.6 End stage renal disease; I12.0 Hypertensive chronic kidney disease with stage 5 chronic kidney disease or end stage renal disease; E11.22 Type 2 diabetes mellitus with diabetic chronic kidney disease; Z79.4 Long term (current) use of insulin; Z95.1 Presence of aortocoronary bypass graft; E03.9 Hypothyroidism, unspecified
CPT/HCPCS: 36558; 71045; 76937; 77001; C1750; C1769; J1642; J1644; J2250; J3010

== ENCOUNTER 2020-02-01 12:09 | Inpatient (IN) | payer MEDICARE, BC ==
--- NOTE | 2020-02-01 12:23 | ED ---
Altered Mental Status - HPI Summary HPI Summary: This patient is an 84 year old male [facility] to [facility] with a chief complaint of low BP. EMS reports patient was at dialysis treatment when they noted he had a blood pressure of 80 systolic and called for EMS. EMS states penitentiary said he has altered mental status, EMS states he was responding with moans which may be his baseline. They state he had an elevated temp of 100 at dialysis, that he was screened two times earlier this week by them with no fever. This patient is a level 5 caveat due to altered mental status. - History Of Current Complaint Stated Complaint: LOW BP PER EMS Time Seen by Provider: 02/01/20 12:11 Hx Obtained From: EMS Timing: Lasting Hours - Allergies/Home Medications Allergies/Adverse Reactions: Allergies Allergy/AdvReac Type Severity Reaction Status Date / Time No Known Allergies Allergy Verified 12/19/19 11:47 Home Medications: Home Medications Acetaminophen TAB* [Tylenol TAB*] 325 mg PO Q6H PRN 12/19/19 [History Confirmed 02/01/20] Aspirin EC TAB* [Ecotrin EC Low Dose 81 MG*] 81 mg PO DAILY 12/19/19 [History Confirmed 02/01/20] Citalopram TAB* [Celexa TAB*] 10 mg PO DAILY 12/19/19 [History Confirmed ] Dextran 70/Hypromellose Tears [Natural Balance Tears Eye Drop] 1 drop BOTH EYES BID 12/19/19 [History Confirmed 02/01/20] Folic Acid TAB* [Folvite TAB*] 1 mg PO DAILY 12/19/19 [History Confirmed ] Insulin GLARGINE(*) [Lantus 100 units/ml 10 ml VIAL (*)] 30 units SUBCUT BEDTIME 12/19/19 [History Confirmed 02/01/20] Ipratropium/Albuterol Sulfate [Iprat-Albut 0.5-3(2.5) mg/3 ml] 3 ml INH Q4H PRN 12/19/19 [History Confirmed 02/01/20] Levothyroxine TAB* [Synthorid 112 MCG TAB*] 112 mcg PO DAILY 12/19/19 [History Confirmed 02/01/20] Omeprazole CAP (NF) [Prilosec CAP* 20 MG] 20 mg PO DAILY 12/19/19 [History Confirmed 02/01/20] Simvastatin TAB(NF) [Zocor 20 MG (NF)] 20 mg PO BEDTIME 12/19/19 [History Confirmed 02/01/20] Tamsulosin CAP* [Flomax CAP*] 0.4 mg PO BEDTIME 12/19/19 [History Confirmed ] hydrALAZINE TAB* [Apresoline TAB*] 10 mg PO TID 12/19/19 [History Confirmed ] Insulin Lispro [Humalog Kwikpen 100 units/ml 3 ml x 5 Pens] 0 unit SUBCUT .SEE INSTRUCTIONS 02/01/20 [History Confirmed 02/01/20] Nystatin SUSPENSION* [Nystatin*] 100,000 unit MT QID 02/01/20 [History Confirmed 02/01/20] PMH/Surg Hx/FS Hx/Imm Hx Endocrine/Hematology History: Reports: Hx Diabetes Cardiovascular History: Reports: Hx Coronary Artery Disease, Hx Hypertension History: Reports: Hx Chronic Renal Failure Sensory History: Denies: Hx Contacts or Glasses, Hx Hearing Aid Opthamlomology History: Denies: Hx Contacts or Glasses - Family History Known Family History: Positive: Non-Contributory - Social History Alcohol Use: None Substance Use Type: Reports: None Smoking Status (MU): Former Smoker - Additional Comments History Additional Comments: PMHx Level 5 caveat due to AMS. Review of Systems Positive: Fever - 100 F Positive: Other - Hypotensive Neurological/Mental Status: Other - AMS All Other Systems Reviewed And Are Negative: No - Comments Additional Review of Systems Comments: This patient is a level 5 caveat due to AMS. Physical Exam - Summary Physical Exam Summary: Appearance: The patient is well-nourished in no acute distress and in no acute pain. Skin: The skin is warm and dry and skin color reflects adequate perfusion. HEENT: The head is normocephalic and atraumatic. The pupils are equal and reactive. The conjunctivae are clear and without drainage. Nares are patent and without drainage. Mouth reveals Dry mucous membranes, and the throat is without erythema and exudate. The external ears are intact. The ear canals are patent and without drainage. The tympanic membranes are intact. Neck: The neck is supple with full range of motion and non-tender. There are no carotid bruits. There is no neck vein distension. Respiratory: Chest is non-tender. Bilateral crackles. Cardiovascular: Heart is irregularly irregular rhythm. Systolic ejection murmur. There is no peripheral edema and pulses are symmetrical and equal. Abdomen: The abdomen is soft and non-tender. There are normal bowel sounds heard in all four quadrants and there is no organomegaly palpated. Musculoskeletal: There is no back tenderness noted. Extremities are non-tender with full range of motion. There is good capillary refill. There is no peripheral edema or calf tenderness elicited. Neurological: Patient is alert and oriented to person, place and time. The patient has symmetrical motor strength in all four extremities. Cranial nerves are grossly intact. Deep tendon reflexes are symmetrical and equal in all four extremities. Psychiatric: The patient has an appropriate affect and does not exhibit any anxiety or depression. Triage Information Reviewed: Yes Vital Signs On Initial Exam: Temp Pulse Resp BP Pulse Ox 96.9 F 63 25 94/43 97 02/01/20 12:26 02/01/20 15:18 02/01/20 15:18 02/01/20 15:18 02/01/20 15:18 Vital Signs Reviewed: Yes Procedures - Sedation Patient Received Moderate/Deep Sedation with Procedure: No Diagnostics - Laboratory Result Diagrams: 02/01/20 13:05 02/01/20 13:05 Lab Statement: Any lab studies that have been ordered have been reviewed, and results considered in the medical decision making process. - Radiology CXR Radiology Interpretation Completed By: Radiologist Summary of Radiographic Findings: 1. Hypoinflated lungs with no new focal airspace opacification. 2. Postoperative changes as above. 3. Support devices as above. ED Provider has reviewed this report. - EKG 1402 Cardiac Rate: NL - 63 BPM EKG Rhythm: Atrial Flutter Summary of EKG Findings: Atrial flutter, controlled rate. ED Physician has reviewed and interpreted [facility] EKG. Altered Mental Statu Course/Dx - Course Course Of Treatment: Mr. Quevedo symptoms over from the dialysis unit for low blood pressure subsequent dialysis. The ambulance transporting him gave him some fluid and he arrived within normal pressure. His initial temperature when I took a was 96.9 which does not meet septic criteria. His respiratory rate was increased and I heard crackles bilaterally. Additional fluids were held secondary to his renal failure and a concern for possible CHF. His white cell count did return at 20,000 and was noted to been 14,000 couple days ago. Although he technically met septic criteria with respiratory rate and no leukocytosis fluids were still held with a concern for possible failure. His chest x-ray was poor quality portable chest x-ray and ultimately read as no acute pathology. His troponin returned with initial reading of 6.9. EKG was unchanged from previous EKGs. This was concerning in the hospitalist service was contacted for admission. At that point his BNP returned only marginally elevated. There is a vague history that he may have had fevers [facility] although the dialysis units reports noticing them twice this week without any fevers. Covert 19 test as well as influenza test were sent. - Diagnoses Provider Diagnoses: Elevated troponin, Leukocytosis - Critical Care Time Critical Care Time: 30-74 min Discharge ED - Sign-Out/Discharge Documenting (check all that apply): Patient Departure - Admission, accepted by Dr. Bernstein, Hospitalist - Discharge Plan Condition: Stable Disposition: ADMITTED TO [facility] Referrals: Jessica Bernstein DO [Primary Care Provider] - - Billing Disposition and Condition Condition: STABLE Disposition: Admitted to [facility] - Attestation Statements Document Initiated by Krishna: Yes Documenting Scribe: Juan Mesa Provider For Whom Krishna is Documenting (Include Credential): Ted Watson MD Scribe Attestation: Juan Bowden, scribed for Ted Watson MD on 02/01/20 at 1653. Scribe Documentation Reviewed: Yes Provider Attestation: The documentation as recorded by the Juan somers accurately reflects the service I personally performed and the decisions made by me, Ted Watson MD Status of Scribe Document: Viewed
[2020-02-01 13:25] LABS: ABS Lymphocytes 0.7 10^3/ul (1.0-4.8); ABS Monocytes 0.6 10^3/ul (0-0.8); ABS Neutrophils 18.6 10^3/ul (1.5-7.7); Eosinophil % 0.1 %; Hematocrit 24 % (42-52); Hemoglobin 7.4 g/dL (14.0-18.0); Lymphocyte % 3.5 %; Mean Corpuscular HGB Conc 32 g/dL (31-36); Mean Corpuscular Hemoglobin 27 pg (27-31); Mean Corpuscular Volume 85 fL (80-94); Mean Platelet Volume 9.5 fL (7.4-10.4); Platelet Count 144 10^3/uL (150-450); Red Blood Count 2.75 10^6 /uL (4.18-5.48); Red Cell Distribution Width 18 % (10-15)
[2020-02-01 13:37] LABS: Activated Partial Thrombo Time 30.6 seconds (26.0-38.0); INR 1.21 (0.82-1.09)
[2020-02-01 13:47] LABS: ALT 59 U/L (7-52); AST 41 U/L (13-39); Albumin/Globulin Ratio 0.5 (1-3); Alkaline Phosphatase 259 U/L (34-104); Anion Gap 14 mmol/L (2-11); BUN/Creatinine Ratio 21.4 (8-20); Blood Urea Nitrogen 109 mg/dL (6-24); CO2 Carbon Dioxide 26 mmol/L (22-32); Calcium 8.7 mg/dL (8.6-10.3); Chloride 95 mmol/L (101-111); EGFR African American 13.1 (>60); EGFR Non-African American 10.8 (>60); Globulin 4.1 g/dL (2-4); Glucose 177 mg/dL (70-100); Potassium 4.8 mmol/L (3.5-5.0); Sodium 135 mmol/L (135-145); Total Protein 6.1 g/dL (6.4-8.9)
[2020-02-01 13:51] LABS: Influenza A Molecular Negative (Negative); Influenza B Molecular Negative (Negative)
--- OUTSIDE RECORDS SUMMARY | 2020-02-01 14:05 | XMS REPORT | Continuity of Care Document ---
:1935 External Reference #:[id number] Author Name Loraine Galeano NP (transmitted by agent of provider María Elena Butt) Address [address] [place] [address] [place] [address] Problems Description No Information Available Social History Type Date Description Comments Sex Unknown ETOH Use Rarely consumes alcohol Tobacco Use Start: Unknown End: Unknown Patient is a former smoker Recreational Drug Use Denies Drug Use Allergies, Adverse Reactions, Alerts Description No Known Drug Allergies Medications Active Medications SIG Qnty Indications Ordering Date Provider Artificial Tears Instill 2 drops into Other Ordering 01/03/2020 0.4% each eye twice daily Provider Solution Humalog Inject 5 units Other Ordering 12/26/2019 100Unit/ML subcutaneously prior Provider Solution to meals Lantus Solostar Inject 40 units Other Ordering 12/24/2019 subcutaneously at Provider 100Unit/ML Solution bedtime Pen-Inject Genteal Tears Instill 1 drop in Other Ordering 12/21/2019 Moderate PF both eyes two times Provider 0.1-0.3% daily Solution Tamsulosin HCL Take 1 capsule by Other Ordering 12/21/2019 0.4mg mouth at bedtime Provider Capsules Ipratropium Inhale 3 ml every 4 Other Ordering 12/21/2019 [place]/Albuterol hours as needed for Provider Sulfate shortness of breath or wheeze 0.5-2.5(3)mg/3ML Solution Acetaminophen Take 325 mg by mouth Other Ordering 12/21/2019 325mg every 6 hours as Provider Tablets needed for pain or fever Omeprazole Take 1 capsule by Other Ordering 12/21/2019 20mg mouth daily Provider Capsules Aspirin Ec Low Dose Take 1 tablet by Other Ordering 12/21/2019 mouth daily Provider 81mg Tablets Citalopram Take 1 tablet by Other Ordering 12/21/2019 Hydrobromide mouth daily Provider 10mg Tablets Levothyroxine Sodium Take 1 tablet by Other Ordering 12/21/2019 mouth daily Provider 112mcg Tablets Simvastatin Take 1 tablet by Other Ordering 12/21/2019 20mg mouth at bedtime Provider Tablets Hydralazine HCL Take 1 tablet by Other Ordering 12/21/2019 10mg mouth three times Provider Tablets daily Folic Acid Take 1 tablet by Other Ordering 12/21/2019 1mg Tablets mouth daily Provider History Medications Santyl Collagenase Apply to bilateral Other Ordering 12/28/2019 - Ointment buttocks daily Provider 01/13/2020 250Units/G Eliquis Take 1 tablet by Other Ordering 12/21/2019 - 2.5mg Tablets mouth twice daily Provider 01/13/2020 Immunizations Description No Information Available Vital Signs Date Vital Result Comment 12/30/2019 5:41pm Heart Rate 78 /min BP Systolic 128 mmHg BP Diastolic 56 mmHg Respiratory Rate 18 /min Body Temperature 97.5 F O2 % BldC Oximetry 96 % Results Description No Information Available Procedures Date Code Description Status 12/23/2019 12410 Fluoroscopic Guidance For Cent Completed 12/23/2019 26837 Ultrasound Guidance For Vascular Access Completed 12/23/2019 77328 Insertion Tunneled Cent Venous Cathr W/O Subcut Port/Pump Completed 5Yrs> Medical Devices Description No Information Available Encounters Type Date Location Provider Dx Diagnosis Office Visit 01/13/2020 [facility] R79.82 Elevated 3:30p Infectious [place], AUDIT MACHINE OPERATOR C-reactive protein Diseases (CRP) Office Visit 01/06/2020 [facility] R82.71 Bacteriuria 8:00a Infectious [place] AUDIT MACHINE OPERATOR Diseases Z16.22 Resistance to vancomycin related antibiotics R41.82 Altered mental status, unspecified R79.82 Elevated C-reactive protein (CRP) Office Visit 12/30/2019 4:40p [facility] R82.71 Bacteriuria Infectious [place] AUDIT MACHINE OPERATOR Diseases Z16.22 Resistance to vancomycin related antibiotics R41.82 Altered mental status, unspecified B95.2 Enterococcus as the cause of diseases classified elsewhere Office Visit 12/20/2019 9:46a [facility] Kike R11.2 Nausea with Assoc,leatha Azevedo M.D. vomiting, Hospitalists unspecified Z99.2 Dependence on renal dialysis Office Visit 12/20/2019 8:10a [facility] Nephrology Lou Page MD I12.0 Hyp chr kidney disease w stage 5 chr kidney disease or Esrd E11.22 Type 2 diabetes mellitus w diabetic chronic kidney disease N18.6 End stage renal disease Office Visit 12/19/2019 9:46a [facility] Sandy Oreilly, R09.02 leatha Piedra M.D. Hospitalists R11.2 Nausea with vomiting, unspecified E11.9 Type 2 diabetes mellitus without complications D64.9 Anemia, unspecified Assessments Date Code Description Provider 01/13/2020 R79.82 Elevated C-reactive protein (CRP) Loraine Galeano , AUDIT MACHINE OPERATOR 01/06/2020 R82.71 Bacteriuria Loraine Galeano, AUDIT MACHINE OPERATOR 01/06/2020 Z16.22 Resistance to vancomycin related Loraine Galeano , JAZMIN antibiotics 01/06/2020 R41.82 Altered mental status, unspecified Loraine Galeano, AUDIT MACHINE OPERATOR 01/06/2020 R79.82 Elevated C-reactive protein (CRP) Loraine Galeano , AUDIT MACHINE OPERATOR 12/30/2019 R82.71 Bacteriuria Loraine Galeano, AUDIT MACHINE OPERATOR 12/30/2019 Z16.22 Resistance to vancomycin related Loraine Galeano , JAZMIN antibiotics 12/30/2019 R41.82 Altered mental status, unspecified Loraine Galeano, JAZMIN 12/30/2019 B95.2 Enterococcus as the cause of diseases Loraine Galeano, JAZMIN classified elsewhere 12/23/2019 N18.6 End stage renal disease Nannette Perez MD 12/20/2019 R11.2 Nausea with vomiting, unspecified Kike Azevedo M.D. 12/20/2019 I12.0 Hypertensive chronic kidney disease Lou Page MD with stage 5 chronic kidney disease or end stage renal disease 12/20/2019 Z99.2 Dependence on renal dialysis Kike Azevedo M.D. 12/20/2019 E11.22 Type 2 diabetes mellitus with diabetic Lou Page MD chronic kidney disease 12/20/2019 N18.6 End stage renal disease Lou Page MD 12/19/2019 R09.02 Hypoxemia Sandy Oreilly M.D. 12/19/2019 R11.2 Nausea with vomiting, unspecified Sandy Oreilly M.D. 12/19/2019 E11.9 Type 2 diabetes mellitus without Sandy Oreilly M.D. complications 12/19/2019 D64.9 Anemia, unspecified Sandy Oreilly M.D. Plan of Treatment No Information Available Functional Status Description No Information Available Mental Status Description No Information Available Referrals Description No Information Available
[2020-02-01] MEDS ORDERED: Ondansetron INJ* 2 MG/ML VIAL IV PRN (14:45)
[2020-02-01] MEDS ORDERED: Acetaminophen TAB* 325 MG PO PRN (14:45)
[2020-02-01 14:49] LABS: Troponin I 0.22 ng/mL (<0.03)
[2020-02-01] MEDS ORDERED: Vancomycin(*) 1,000 MG in NS 0.9% 250 ML* 250 ML IVPB ONE (14:52)
[2020-02-01] MEDS ORDERED: NS 0.9% 500 ML* 500 ML IV ONE (14:54)
[2020-02-01] MEDS ORDERED: Dextrose 50% Syringe 50 ML* 25 GM/50 ML SYRINGE IV PUSH PRN (14:59)
[2020-02-01] MEDS ORDERED: Vancomycin per Pharmacy* NOTE FOLLOW UP SCH (15:00)
[2020-02-01] MEDS ORDERED: Cefepime 1 GM in Dextrose(*) 1 GM/50 ML BAG IV SCH (15:00)
[2020-02-01] MEDS ORDERED: Insulin LISPRO* 1 UNITS UNIT SUBCUT SCH (16:30)
[2020-02-01 16:37] LABS: Troponin I 0.05 ng/mL (<0.03)
[2020-02-01] MEDS ORDERED: Nystatin SUSPENSION* 100000 UNITS/ML 5 ML UDC PO SCH (17:00)
[2020-02-01] MEDS: Cefepime 1 GM in Dextrose(*) 1 GM/50 ML BAG IV SCH (17:24)
[2020-02-01] MEDS ORDERED: Vancomycin - DIALYSIS DOSING* NOTE FOLLOW UP SCH (19:00)
[2020-02-01] MEDS ORDERED: metroNIDAZOLE IV 250 MG/50ML* 50 ML IVPB SCH (19:00)
[2020-02-01 19:06] LABS: Troponin I 0.05 ng/mL (<0.03)
[2020-02-01] MEDS: Insulin LISPRO* 1 UNITS UNIT SUBCUT SCH (19:30)
[2020-02-01] MEDS: metroNIDAZOLE IV 250 MG/50ML* 50 ML IVPB SCH (20:38)
[2020-02-01] MEDS: Heparin VIAL(*) 5000 UNITS/ML VIAL (FIVE THOUSAND) SUBCUT SCH (20:38)
[2020-02-01] MEDS ORDERED: Atorvastatin* 10 MG TAB PO SCH (21:00)
[2020-02-01] MEDS ORDERED: hydrALAZINE TAB* 10 MG PO SCH ×2 (21:00)
[2020-02-01] MEDS ORDERED: Tamsulosin CAP* 0.4 MG PO SCH (21:00)
[2020-02-01] MEDS ORDERED: Insulin GLARGINE(*) 1 UNITS UNIT SUBCUT SCH ×2 (21:00)
[2020-02-01] MEDS ORDERED: Lactated Ringers 1000 ML Bag* 1,500 ML IV ONE (22:00)
--- NOTE | 2020-02-01 22:07 | HP ---
CC: [facility] * HISTORY AND PHYSICAL: DATE OF ADMISSION: 02/01/20 PRIMARY CARE PROVIDER: [facility]. MY ATTENDING PHYSICIAN WHILE IN THE HOSPITAL: Dr. Jessica Bernstein* (DICTATED BY AFUA GARCIA) CHIEF COMPLAINT: Altered mental status, reported fever. HISTORY OF PRESENT ILLNESS: Mr. Chacon is an 84-year-old male with past medical history significant for end-stage renal disease, diabetes mellitus type 2, coronary artery disease, who has been referred to the emergency department from his dialysis session where he was unable to finish his dialysis related to altered mental status and low blood pressure as well as fever. The patient, last Monday, which was 01/27/20, was reported to have a fever, though this was not documented in his records from [facility]; however, he had a chest x-ray at that time, which was reported to have shown a pneumonia. This record is not available; however, at that time he was started on levofloxacin every 48 hours renally dosed. The patient had no other focalizing symptoms and had reportedly no recurrence of his fever until today. It was reported to his from whom collateral information was able to be obtained that [facility] employees stated he was acting normally this morning and then was able to talk to them and assist in getting up to the chair. The patient was then sent to dialysis where he was noted to be hypotensive and have a reported fever of 100 degrees Fahrenheit. The patient was unable to finish his dialysis session and was sent to the emergency department. The patient in the emergency department was not noted to have any recurrent fevers. The patient, however, did have a severely elevated white blood cell count at 20 and an elevated CRP above his baseline CRP of 323, elevated lactic acid, elevated troponin, and other labs consistent with chronic kidney disease. The patient himself was unable to give any information, though he was quiet and apparently delirious. Due to the concern for delirium in the setting of possible infection, we were asked to evaluate the patient for admission to the hospital. PAST MEDICAL HISTORY: End-stage renal disease, on hemodialysis Monday, , Monday; diabetes mellitus type 2; hypertension; coronary artery disease; hypothyroidism; BPH. PAST SURGICAL HISTORY: Left knee replacement x2., CABG, dialysis catheter placement, right shoulder surgery. MEDICATIONS: Medications per records from [facility]: 1. Folic acid 1 mg p.o. daily. 2. Hydralazine 10 mg p.o. t.i.d. 3. Simvastatin 20 mg p.o. daily. 4. Levothyroxine 112 mcg p.o. daily. 5. Celexa 10 mg p.o. daily. 6. Omeprazole 20 mg p.o. daily. 7. Ipratropium albuterol 3 mL inhalation every 4 hours as needed for shortness of breath. 8. Tylenol 325 mg p.o. q.6 hours as needed for pain. 9. Dextran-hypromellose solution 0.1 to 0.3% one drop both eyes daily. 10. Tamsulosin 0.4 mg p.o. daily. 11. Insulin glargine 40 units subcutaneous bedtime. 12. Humalog 5 units subcutaneous with meals. 13. Artificial Tears 0.4% solution 2 drops both eyes 2 times a day for dry eyes. 14. Levofloxacin 500 mg p.o. q.48 hours for pneumonia. 15. Eucerin daily as needed. 16. Nystatin 100,000 units 5 mL by mouth 4 times a day. 17. Santyl to coccyx. ALLERGIES: No known drug allergies FAMILY HISTORY: Per previous records, the patient has 4 healthy siblings. The patient's parents in their 80s of old age and has a son with diabetes mellitus type 2. SOCIAL HISTORY: The patient smoked during World War II, has not smoked since then. The patient denies illicit drug use or alcohol. The patient currently lives at [facility]. The patient is and his , Katy, will be his surrogate decision maker. REVIEW OF SYSTEMS: Unable to be obtained by this patient reliably. PHYSICAL EXAMINATION GENERAL: The patient is an 84-year-old male, who appears stated age and sitting comfortably in bed, in no acute distress. VITAL SIGNS: At the time of evaluation, temperature 97.6, pulse rate 65, respiratory rate 24, oxygen saturation 97% on room air, blood pressure 116/52. HEENT: Head: Normocephalic, atraumatic. Sclerae anicteric. No conjunctival injection. Nasal mucosa moist. Oral mucosa dry. No pharyngeal erythema, discharge, or exudate. NECK: Supple, nontender. No lymphadenopathy. No carotid bruit auscultated. No JVD. RESPIRATORY: Clear to auscultation bilaterally. No wheezes, rales or rhonchi. Good air exchange bilaterally. CARDIAC: Regular rate and rhythm. No clicks, murmurs, gallops or rubs. Pulse is 2+ in the dorsalis pedis, posterior tibialis, and radial areas. Grade 2/6 systolic ejection murmur heard best throughout the right upper sternal border. ABDOMEN: Soft, nontender, nondistended. Bowel sounds present. Normoactive in all 4 quadrants. No hepatosplenomegaly. No abdominal bruits auscultated. No hepatojugular reflux. NEUROLOGIC: Cranial nerves II through XII grossly intact. No focal deficits. Alert, not oriented. DIAGNOSTIC STUDIES/LAB DATA: Chest x-ray read as hyperinflated lungs, no new focal airspace opacification, postoperative changes reported. EKG shows atrial flutter, no ST elevation or depression, single PVC, no hypertrophy or enlargement, rate of 63, QTc of 453. White blood cell count 20.0, hemoglobin 7.4, platelet count 144, INR 1.21, APTT 30.6. Sodium 135, potassium 4.8, chloride 95, carbon dioxide 26, anion gap 14, BUN 109, creatinine 5.1, glucose 177, lactic acid 2.9, calcium 8.7, bilirubin 0.5, AST 41, ALT 59, alkaline phosphatase 259, troponin I 0.22, CRP 323.4, BNP 293, protein 6.0, albumin 2.0, globulin 4.1. Influenza A and B negative. ASSESSMENT AND PLAN/IMPRESSION: Ms. Chacon is an 84-year-old male with past medical history significant for endstage renal disease, diabetes mellitus type 2 and hypertension as well as coronary artery disease, who presents to the emergency department with recurrent fevers over the past week, worsening altered mental status and hypotension, who appears to be clinically dry with laboratory evidence of infection. The patient will be admitted to the hospital for supportive care, antibiotics and monitoring. 1. Hypotension, fever, elevated lactic acid. The patient meets sepsis criteria with elevated white blood cell count, reported fever, and lactic acidosis. The patient appears clinically dry. It is unclear if the patient's lactic acidosis is related to this in combination of poor renal clearance or if this is related to hypoperfusion. The patient will be given 500 mL normal saline, will not be given a full fluid bolus due to his end-stage renal disease and the unavailability of dialysis over the weekend. The patient was unable to tolerate dialysis this morning due to hypotension; however, the patient's blood pressure is currently in the normal range. The patient is on vancomycin and cefepime. The patient was on Levaquin at home. The patient will have blood cultures drawn and urine culture will be obtained if the patient is able to make urine. He is unable to answer, it is unclear whether this is the case. The patient has no fever at this time, but 2 fevers were reported in the last week. If the patient does not grow any bacterium and fails to improve clinically on antibiotics, then consideration for stopping his antibiotics should be undertaken. The patient has been tested for SARS-CoV-2 due to his interstitial state, altered mental status and reported fevers, though he does lack marked respiratory symptoms. The patient's influenza A and B are negative. 2. Endstage renal disease. The patient has no urgent indication for dialysis, though his creatinine is worse than his baseline, this is unlikely the cause of his altered mental status, so this will be monitored daily and dialysis will be performed when available as the patient was unable to get it today. 3. Elevated troponin. The patient's elevated troponin is likely related to his illness in combination with end-stage renal disease. 4. Diabetes mellitus type 2. The patient is currently hyperglycemic, however, it is unlikely the patient will be able to take in his normal diet given his altered mental status. The patient will be placed on sliding scale insulin and reduced dosing of his long-acting insulin at 20 units daily from his baseline of 40. 5. Hypertension. The patient is currently hypotensive. The patient's hydralazine will be held. The patient's tamsulosin will be continued in an effort to facilitate an urine sample if possible. 6. Coronary artery disease. Continue the patient's aspirin and statin. The patient's EKG is nonischemic and troponins will be trended. The patient denies any chest pain at this time. 7. Hypothyroidism. Continue the patient's Synthroid dosing. 8. Benign prostatic hypertrophy. Continue the patient's tamsulosin. 9. DVT prophylaxis: Heparin subcu renally dosed. 10. FEN: The patient will have a heart healthy diet with renal modifications, caffeine okay, and 500 mL of fluid as above. 11. Disposition: The patient will be admitted inpatient to the hospital with expected length of stay greater than 2 midnights. 12. Code status. The patient may be a DNR. The patient's surrogate decision maker will be his . TIME SPENT: Approximately 60 minutes was spent on this admission, 30 of which was spent [id number] with the patient obtaining history and physical and discussing treatment plan. This plan was discussed with my attending, Dr. Jessica Bernstein, and she is in agreement. AFUA GARCIA [id number]/[facility] #: [id number] Addendum: Patient was noted upon admission to have a large decubitus ulcer which was unstageable on his coccyx. This was considered as the possible source of patient's infection and Flagyl IV was added on for anaerobic coverage and a wound care consult was requested. EDUAR
[2020-02-02] MEDS: Levothyroxine TAB* 112 MCG TAB PO SCH ×2 (06:26→06:31)
[2020-02-02 07:47] LABS: ABS Basophils 0.1 10^3/ul (0-0.2); ABS Lymphocytes 0.8 10^3/ul (1.0-4.8); ABS Monocytes 0.5 10^3/ul (0-0.8); ABS Neutrophils 19.1 10^3/ul (1.5-7.7); Hematocrit 21 % (42-52); Hemoglobin 6.9 g/dL (14.0-18.0); Lymphocyte % 3.7 %; Mean Corpuscular HGB Conc 32 g/dL (31-36); Mean Corpuscular Hemoglobin 27 pg (27-31); Mean Corpuscular Volume 84 fL (80-94); Mean Platelet Volume 9.4 fL (7.4-10.4); Platelet Count 116 10^3/uL (150-450); Red Blood Count 2.55 10^6 /uL (4.18-5.48); Red Cell Distribution Width 18 % (10-15); White Blood Count 20.5 10^3/uL (3.5-10.8)
[2020-02-02 08:02] LABS: ALT 41 U/L (7-52); AST 27 U/L (13-39); Albumin 1.9 g/dL (3.2-5.2); Albumin/Globulin Ratio 0.6 (1-3); Alkaline Phosphatase 229 U/L (34-104); Anion Gap 13 mmol/L (2-11); BUN/Creatinine Ratio 23.7 (8-20); Blood Urea Nitrogen 119 mg/dL (6-24); CO2 Carbon Dioxide 25 mmol/L (22-32); Calcium 8.2 mg/dL (8.6-10.3); Chloride 98 mmol/L (101-111); EGFR African American 13.4 (>60); Globulin 3.4 g/dL (2-4); Glucose 131 mg/dL (70-100); Magnesium 2.1 mg/dL (1.9-2.7); Potassium 4.9 mmol/L (3.5-5.0); Sodium 136 mmol/L (135-145); Total Protein 5.3 g/dL (6.4-8.9)
[2020-02-02 08:13] LABS: Troponin I 0.04 ng/mL (<0.03)
[2020-02-02] MEDS: metroNIDAZOLE IV 250 MG/50ML* 50 ML IVPB SCH ×2 (10:22→23:20)
[2020-02-02] MEDS: Insulin LISPRO* 1 UNITS UNIT SUBCUT SCH ×3 (10:23→17:40)
[2020-02-02] MEDS: Insulin GLARGINE(*) 1 UNITS UNIT SUBCUT SCH (10:23)
[2020-02-02] MEDS: Citalopram TAB* 10 MG PO SCH (10:24)
[2020-02-02] MEDS: Atorvastatin* 10 MG TAB PO SCH (10:24)
[2020-02-02] MEDS: Folic Acid TAB* 1 MG PO SCH (10:24)
[2020-02-02] MEDS: Heparin VIAL(*) 5000 UNITS/ML VIAL (FIVE THOUSAND) SUBCUT SCH ×2 (10:24→20:48)
[2020-02-02] MEDS: Pantoprazole TAB * 40 MG TAB PO SCH (10:24)
[2020-02-02] MEDS: Aspirin EC TAB* 81 MG TAB.EC PO SCH (10:24)
[2020-02-02] MEDS: Tamsulosin CAP* 0.4 MG PO SCH (10:24)
--- NOTE | 2020-02-02 11:26 | PN ---
Subjective Date of Service: 02/02/20 Interval History: Pt is sleepy appearing but does answer simple yes/no questions with mumbled answers but is unable to carry on a conversation. Nursing notes the patient had liquid stool overnight. Objective Active Medications: Acetaminophen (Tylenol Tab*) 650 mg PO Q6H PRN PRN Reason: MILD PAIN or TEMP > 100.4 Aspirin (Aspirin Ec Tab*) 81 mg PO DAILY [facility] Last Admin: 02/02/20 10:24 Dose: Not Given Atorvastatin Calcium (Lipitor*) 10 mg PO DAILY [facility] Last Admin: 02/02/20 10:24 Dose: Not Given Citalopram Hydrobromide (Celexa Tab*) 10 mg PO DAILY [facility] Last Admin: 02/02/20 10:24 Dose: Not Given Dextrose (D50w Syringe 50 Ml*) 12.5 gm IV PUSH .FOR FS < 60 - SS PRN PRN Reason: FS < 60 Folic Acid (Folvite Tab*) 1 mg PO DAILY [facility] Last Admin: 02/02/20 10:24 Dose: Not Given Heparin Sodium (Porcine) (Heparin Vial(*)) 5,000 units SUBCUT Q12HR [facility] Last Admin: 02/02/20 10:24 Dose: 5,000 units Cefepime HCl (Maxipime 1 Gm In Dextrose Duplex (*)) 1 gm in 50 mls @ 100 mls/ hr IV Q24H [facility] Last Admin: 02/01/20 17:24 Dose: 100 mls/hr Metronidazole/Sodium Chloride (Flagyl 250 Mg Ivpb*) 50 mls @ 50 mls/hr IVPB Q12H [facility] Last Admin: 02/02/20 10:22 Dose: 50 mls/hr Insulin Glargine (Lantus(*)) 20 units SUBCUT DAILY [facility] Last Admin: 02/02/20 10:23 Dose: 20 units Insulin Human Lispro (Humalog*) 0 units SUBCUT AC [facility]; Protocol Last Admin: 02/02/20 10:23 Dose: 3 units Levothyroxine Sodium (Synthroid Tab*) 112 mcg PO DAILY@0600 [facility] Last Admin: 02/02/20 06:31 Dose: Not Given Ondansetron HCl (Zofran Inj*) 4 mg IV Q6H PRN PRN Reason: NAUSEA Pantoprazole Sodium (Protonix Tab*) 20 mg PO DAILY [facility] Last Admin: 02/02/20 10:24 Dose: Not Given Pharmacy Consult (Vancomycin Per Pharmacy*) 1 note FOLLOW UP .VANC PER PHARMACY [facility]; Protocol Pharmacy Consult (Vancomycin - Dialysis Dosing*) 1 note FOLLOW UP . [facility] Pharmacy Consult (Vancomycin Random Level*) 1 note FOLLOW UP ONCE ONE Stop: 02/03/20 06:01 Tamsulosin HCl (Flomax Cap*) 0.4 mg PO DAILY [facility] Last Admin: 02/02/20 10:24 Dose: Not Given Vital Signs - 8 hr 02/02/20 04:31 Temperature 97.2 F Pulse Rate 58 Respiratory 19 Rate Blood Pressure 102/60 (mmHg) O2 Sat by Pulse 100 Oximetry Oxygen Devices in Use Now: Nasal Cannula - 3L-100% Appearance: Elderly acutely ill appearing male sitting up in bed, sleeping, awakens to voice, NAD Eyes: No Scleral Icterus Ears/Nose/Mouth/Throat: Mucous Membranes Moist Respiratory: Symmetrical Chest Expansion and Respiratory Effort, Clear to Auscultation Cardiovascular: NL Sounds; No Murmurs; No JVD, RRR, No Edema Abdominal: NL Sounds; No Tenderness; No Distention Extremities: No Clubbing, Cyanosis Skin: - - stage IV pressure ulcer on R heel, very large unstageable pressure ulcer of the medial buttocks bilaterally, sacrum and extending up the lumbar back, very foul smell Neurological: - - lethargic Result Diagrams: 02/02/20 07:37 02/02/20 07:37 Microbiology and Other Data: Microbiology 02/01/20 13:05 Aerobic Blood Culture - Preliminary Blood Venous Anaerobic Blood Culture - Preliminary Blood MRSA/MSSA (PCR) - Final Mrsa Negative S.aureus Negative 02/01/20 15:40 Aerobic Blood Culture - Preliminary Blood Venous Anaerobic Blood Culture - Preliminary Blood MRSA/MSSA (PCR) - Final Mrsa Negative S.aureus Negative Assess/Plan/Problems-Billing Mr Chacon is an 84 yo M who has a h/o ESRD on HD, type II DM, HTN and CAD who presented to the ER from dialysis due to AMS, hypotension and fever. - Patient Problems (1) Severe sepsis Current Visit: Yes Status: Acute Code(s): A41.9 - SEPSIS, UNSPECIFIED ORGANISM; R65.20 - SEVERE SEPSIS WITHOUT SEPTIC SHOCK SNOMED Code(s): 15014420 Comment: Pt with septic encephalopathy secondary to severe sepsis. Hypotension secondary to dehydration and taking oral antihypertensive. (2) Decubitus ulcer of sacral region, unstageable Current Visit: Yes Status: Acute Code(s): L89.150 - PRESSURE ULCER OF SACRAL REGION, UNSTAGEABLE SNOMED Code(s): 072772115 Comment: Pt with massive unstageable decubitus ulcer. I have asked for general surgery consultation as I believe this will likely need debridement. Will continue vanco, cefepime and flagyl for now. He has positive blood cultures , 4 of 4 bottles positive for gram positive cocci (not staph) and 1 of 4 bottles positive for gram negative bacilli. I suspect the bacteremia is coming from his decubitus. Will get ID consult tomorrow. (3) Anemia Current Visit: Yes Status: Acute Code(s): D64.9 - ANEMIA, UNSPECIFIED SNOMED Code(s): 248934736 Comment: Likely anemia of CKD but will also check stool occult, iron studies. Will not transfuse today but if H/H worsened again tomorrow will give a unit of blood. (4) ESRD (end stage renal disease) Current Visit: Yes Status: Acute Code(s): N18.6 - END STAGE RENAL DISEASE SNOMED Code(s): 45227228 Comment: Continue dialysis TUTHSA. (5) HTN (hypertension) Current Visit: Yes Status: Acute Code(s): I10 - ESSENTIAL (PRIMARY) HYPERTENSION SNOMED Code(s): 17548995 Comment: BP soft to low normal. Holding hydralazine. Will give IVF as I believe the patient is volume deplete. (6) CAD (coronary artery disease) Current Visit: Yes Status: Acute Code(s): I25.10 - ATHSCL HEART DISEASE OF [place] CORONARY ARTERY W/O ANG PCTRS SNOMED Code(s): 68319491 Comment: Troponin mildly elevated. Likely secondary to demand ischemia from severe sepsis. Continue ASA and lipitor. (7) Type II diabetes mellitus Current Visit: Yes Status: Acute Comment: Blood sugars are under fair control on lantus 20 units daily and lispro sliding scale. (8) DVT prophylaxis Current Visit: Yes Status: Acute Code(s): Z29.9 - ENCOUNTER FOR PROPHYLACTIC MEASURES, UNSPECIFIED SNOMED Code(s): 061804877 Comment: SQ heparin (9) DNR (do not resuscitate) Current Visit: Yes Status: Acute
[2020-02-02] MEDS ORDERED: NS 0.9% 1000 ML** 1,000 ML IV SCH (12:00)
[2020-02-02 12:34] LABS: % Iron Saturation 27 % (15-55); Iron 30 ug/dL (50-212); Total Iron Binding Capacity 112 mcg/dL (250-450); Transferrin 80 mg/dL (203-362)
[2020-02-02 12:58] LABS: Ferritin > 1500.0 ng/mL (24-336)
[2020-02-02] MEDS ORDERED: Morphine INJ* 2 MG/ML 1 ML SYRINGE (TWO MG - NEW SYRINGE VERSION) IV ONE (13:50)
--- NOTE | 2020-02-02 18:13 | OP ---
DATE OF OPERATION: 02/02/20 - ROOM #402 DATE OF : 33 SURGEON: Jose F Fuentes MD TOUR ACTOR: None. ANESTHESIA: None. PRE-OP DIAGNOSIS: Unstageable large sacral decubiti. POST-OP DIAGNOSIS: Large stage IV sacral decubitus ulcer. OPERATIVE PROCEDURE: Debridement of large stage IV sacral decubitus pressure ulcer. ESTIMATED BLOOD LOSS: Small, not recorded. SPECIMENS: Fluid for Gram stain and culture from the wound. DRAINS: None, and the wound was packed. WOUND CLASSIFICATION: 4. FINDINGS: The patient had an extensive sacral decubiti extending up to the lower portion of the thoracic spine and laterally approximately 25 cm. The width was 25 cm and the length from superior to inferior direction was approximately 40 cm. Debridement was carried down to the bone and there was nonviable tissue, but I appreciated no tracking into the deeper tissue of the buttock or perianal area. BRIEF HISTORY: Mr. Jose Alberto Chacon is an 84-year-old gentleman who presently lives in a long-term, who is on hemodialysis and has multiple medical issues , who was admitted to the hospitalist service today after he presented to dialysis yesterday, hypotensive and with mental status changes. Limited records are available; however, according to his , he has had a sacral decubiti that has been cared for recently. We do not have these records. He was noted to have an elevated white blood cell count of 20,000 and blood cultures have returned as gram-positive cocci, which is MRSA negative. He has been started on cefepime and vancomycin. During his evaluation on admission, he was noted to have an extensive sacral decubiti with eschar and drainage as well as odor and some surrounding redness and surgical consultation was obtained. After evaluating the sacral decubitus ulcer, it appears to be very extensive and certainly the cause of his sepsis as well as most likely the positive blood cultures. The patient is not able to give consent due to his mental status, but I talked with his power of insurance attorney, his , Katy at [phone] and obtained consent for wide debridement of a sacral decubiti. I discussed the procedure with her in detail, and the risks of, but not limited to bleeding, infection, further surgical intervention depending on clinical course, discomfort, and the fact that an ulcer this large is highly unlikely to completely heal and I impressed upon her the acuity of his illness. DESCRIPTION OF PROCEDURE: Written informed consent was obtained and witnessed by verbal consent from his . The site was marked with indelible ink. He was placed in the left lateral decubitus position. Time-out verification was completed. Using a combination of scissors and sharp knife, an extensive amount of eschar and necrotic skin was excised in the area as described above with the dimensions in the area described above. There was large amount of necrotic foul -smelling subcutaneous fat and fluid. Cultures were taken. This was debrided down to bone at the midline and I did not appreciate any tracking into the buttock or into the perianal area. I attempted to debride it as well back to bleeding healthy tissue as possible, although this was somewhat difficult. Some bleeding was controlled with pressure and other areas required figure-of- eight #1 Vicryl sutures. Once as much of the nonviable tissue was excised as possible, hemostasis was assured and the wound was packed with moist Kerlix and covered with ABD gauze. The patient tolerated the procedure well. I did discuss the findings with the patient's on the phone at the completion of the case. [id number]/[facility] #: [id number] EDUAR
[2020-02-02] MEDS: Cefepime 1 GM in Dextrose(*) 1 GM/50 ML BAG IV SCH (20:38)
[2020-02-02] MEDS ORDERED: NS 0.9% 500 ML* 500 ML IV ONE (21:09)
[2020-02-02 23:24] LABS: Hematocrit 20 % (42-52); Hemoglobin 6.5 g/dL (14.0-18.0)
[2020-02-03] MEDS ORDERED: Vancomycin Random Level* NOTE FOLLOW UP ONE (06:00)
[2020-02-03] MEDS: Levothyroxine TAB* 112 MCG TAB PO SCH (06:20)
[2020-02-03 08:00] LABS: BUN/Creatinine Ratio 24.1 (8-20); Calcium 7.8 mg/dL (8.6-10.3); EGFR African American 12.4 (>60); EGFR Non-African American 10.2 (>60)
[2020-02-03 08:04] LABS: Hematocrit 22 % (42-52); Mean Corpuscular HGB Conc 33 g/dL (31-36); Mean Corpuscular Hemoglobin 27 pg (27-31); Mean Corpuscular Volume 83 fL (80-94); Mean Platelet Volume 9.7 fL (7.4-10.4); Platelet Count 104 10^3/uL (150-450); Red Blood Count 2.59 10^6 /uL (4.18-5.48); Red Cell Distribution Width 17 % (10-15); White Blood Count 22.9 10^3/uL (3.5-10.8)
[2020-02-03] MEDS: metroNIDAZOLE IV 250 MG/50ML* 50 ML IVPB SCH (08:25)
[2020-02-03 08:27] LABS: Potassium 5.1 mmol/L (3.5-5.0)
[2020-02-03] MEDS: Aspirin EC TAB* 81 MG TAB.EC PO SCH (08:50)
[2020-02-03] MEDS: Insulin LISPRO* 1 UNITS UNIT SUBCUT SCH (08:50)
[2020-02-03] MEDS: Citalopram TAB* 10 MG PO SCH (08:50)
[2020-02-03] MEDS: Atorvastatin* 10 MG TAB PO SCH (08:50)
[2020-02-03] MEDS: Folic Acid TAB* 1 MG PO SCH (08:50)
[2020-02-03] MEDS: Insulin GLARGINE(*) 1 UNITS UNIT SUBCUT SCH (08:51)
[2020-02-03] MEDS: Tamsulosin CAP* 0.4 MG PO SCH (08:51)
[2020-02-03] MEDS: Pantoprazole TAB * 40 MG TAB PO SCH (08:51)
[2020-02-03] MEDS: Heparin VIAL(*) 5000 UNITS/ML VIAL (FIVE THOUSAND) SUBCUT SCH (08:51)
[2020-02-03 08:53] LABS: ABS Lymphocytes 1.1 10^3/ul (1.0-4.8); ABS Monocytes 0.5 10^3/ul (0-0.8); ABS Neutrophils 21.2 10^3/ul (1.5-7.7); Eosinophil % 0.1 %; Nucleated Red Blood Cells % 0.1
[2020-02-03] MEDS: Morphine ORAL CONCENTRATE* 5 MG/0.25 ML ORAL.SYRIN SL PRN ×2 (08:59→13:37)
--- NOTE | 2020-02-03 09:01 | PN ---
Subjective Date of Service: 02/03/20 Interval History: Pt is non-verbal at this time. Objective Active Medications: Morphine Sulfate (Morphine Oral Concentrate*) 5 mg SL Q2H PRN PRN Reason: moderate pain or air hunger Ondansetron HCl (Zofran Inj*) 4 mg IV Q6H PRN PRN Reason: NAUSEA Vital Signs - 8 hr 02/03/20 02/03/20 02/03/20 01:45 02:00 05:45 Temperature 97.4 F 97.3 F 97.4 F Pulse Rate 59 69 59 Respiratory 20 20 22 Rate Blood Pressure 99/38 95/39 101/39 (mmHg) O2 Sat by Pulse 100 100 100 Oximetry Oxygen Devices in Use Now: Nasal Cannula Appearance: Elderly ill appearing male lying in bed, opens eyes when I call his name he is in NAD Eyes: No Scleral Icterus Ears/Nose/Mouth/Throat: - - very dry oral mucosa Respiratory: Symmetrical Chest Expansion and Respiratory Effort, Clear to Auscultation - anteriorly, - - labored breathing Cardiovascular: NL Sounds; No Murmurs; No JVD, RRR, No Edema Abdominal: NL Sounds; No Tenderness; No Distention Skin: - - unstageable pressure ulcer R heel, very large stage IV pressure ulcer on sacrum tracking up lumbar spine- see picture in separate progress note Neurological: - - awakens to voice, does not respond to questions other than by grunting Result Diagrams: 02/03/20 07:31 02/03/20 07:31 Microbiology and Other Data: Microbiology 02/01/20 13:05 Aerobic Blood Culture - Preliminary Blood Venous Anaerobic Blood Culture - Preliminary Blood MRSA/MSSA (PCR) - Final Mrsa Negative S.aureus Negative 02/01/20 15:40 Aerobic Blood Culture - Preliminary Blood Venous Anaerobic Blood Culture - Preliminary Blood MRSA/MSSA (PCR) - Final Mrsa Negative S.aureus Negative Assess/Plan/Problems-Billing Mr Chacon is an 84 yo M who has a h/o ESRD on HD, type II DM, HTN and CAD who presented to the ER from dialysis due to AMS, hypotension and fever. - Patient Problems (1) Severe sepsis Current Visit: Yes Status: Acute Code(s): A41.9 - SEPSIS, UNSPECIFIED ORGANISM; R65.20 - SEVERE SEPSIS WITHOUT SEPTIC SHOCK SNOMED Code(s): 82616486 Comment: Pt with septic encephalopathy secondary to severe sepsis. Hypotension secondary to dehydration and taking oral antihypertensive. (2) Decubitus ulcer of sacral region, unstageable Current Visit: Yes Status: Acute Code(s): L89.150 - PRESSURE ULCER OF SACRAL REGION, UNSTAGEABLE SNOMED Code(s): 100902663 Comment: Yesterday Dr. Fuentes debrided the very large sacral/lumbar decubitus ulcer. It is clearly stage IV and infected. He was initially tested for COVID as source of fever was not clear however as I evaluated the patient yesterday it became VERY clear that the patient had an infected decubitus as the source of his infection/fever. He is also bacteremic likely from the decubitus ulcer. I spoke with ID who agreed that the COVID test could be cancelled. Today the patient looks MUCH worse. He is not able to answer any of my questions with even a yes/no. I spoke at length with the patient's who agreed that comfort measures only at this time is the right decision. He had a lateral transfer to [facility] set for today but he got hospitalized. Case management is working with [facility] to see if he can go for end of life care as [facility] is much closer to home than [facility]. Will order prn morphine, rectal tylenol and prn ativan only. (3) Anemia Current Visit: Yes Status: Acute Code(s): D64.9 - ANEMIA, UNSPECIFIED SNOMED Code(s): 842046394 Comment: Likely anemia of CKD but worsened yesterday due to blood loss from extensive debridement of the decubitus ulcer. (4) ESRD (end stage renal disease) Current Visit: Yes Status: Acute Code(s): N18.6 - END STAGE RENAL DISEASE SNOMED Code(s): 05532326 Comment: Will be stopping dialysis for comfort measures only. (5) HTN (hypertension) Current Visit: Yes Status: Acute Code(s): I10 - ESSENTIAL (PRIMARY) HYPERTENSION SNOMED Code(s): 53804775 Comment: BP soft to low normal. Holding hydralazine. Will give IVF as I believe the patient is volume deplete. (6) CAD (coronary artery disease) Current Visit: Yes Status: Acute Code(s): I25.10 - ATHSCL HEART DISEASE OF [place] CORONARY ARTERY W/O ANG PCTRS SNOMED Code(s): 25497182 Comment: No further treatment. (7) Type II diabetes mellitus Current Visit: Yes Status: Acute Comment: Stop checking FSBG and insulins. (8) DVT prophylaxis Current Visit: Yes Status: Acute Code(s): Z29.9 - ENCOUNTER FOR PROPHYLACTIC MEASURES, UNSPECIFIED SNOMED Code(s): 217316033 Comment: none- comfort measures only (9) DNR (do not resuscitate) Current Visit: Yes Status: Acute
--- NOTE | 2020-02-03 09:07 | PN ---
Progress Note - Progress Note Date of Service: 02/03/20 - image of sacral decubitus Note: Sacral/lumbar stage IV decubitus ulcer 02/03/20 superior inferior
--- NOTE | 2020-02-03 10:52 | CONSULT ---
Consult Consult: Consult requested for: ESRD Consult requested by: Dr. Jessica Bernstein, Hospitalist. Performed by Dr. Tiff Perez, [facility] Nephrology 02/03/2020 84 Y WM ESRD on HD, TTS via Rt IJ TDC, last HD last . Admitted via ED Monday, from dialysis due to Sepsis with AMS, hypotension and fever. Has deep Sacral Ulcer as the source of sepsis. Patients family signed for Hospice care today and refused HD anymore. As of now, hes Hospice care and DNR PMH: Type II DM HTN CAD Deep infected stage 4 sacral decubitus Ulcer. HomeMeds: Medication Instructions Recorded Confirmed Type Acetaminophen TAB* [Tylenol TAB*] 325 mg PO Q6H PRN 12/19/19 02/01/20 History Aspirin EC TAB* [Ecotrin EC Low 81 mg PO DAILY 12/19/19 02/01/20 History Dose 81 MG*] Citalopram TAB* [Celexa TAB*] 10 mg PO DAILY 12/19/19 02/01/20 History Dextran 70/Hypromellose Tears 1 drop BOTH EYES BID 12/19/19 02/01/20 History [Natural Balance Tears Eye Drop] Folic Acid TAB* [Folvite TAB*] 1 mg PO DAILY 12/19/19 02/01/20 History Insulin GLARGINE(*) [Lantus 100 30 units SUBCUT BEDTIME 12/19/19 02/01/20 History units/ml 10 ml VIAL (*)] Ipratropium/Albuterol Sulfate 3 ml INH Q4H PRN 12/19/19 02/01/20 History [Iprat-Albut 0.5-3(2.5) mg/3 ml] Levothyroxine TAB* [Synthorid 112 112 mcg PO DAILY 12/19/19 02/01/20 History MCG TAB*] Omeprazole CAP (NF) [Prilosec CAP* 20 mg PO DAILY 12/19/19 02/01/20 History 20 MG] Simvastatin TAB(NF) [Zocor 20 MG 20 mg PO BEDTIME 12/19/19 02/01/20 History (NF)] Tamsulosin CAP* [Flomax CAP*] 0.4 mg PO BEDTIME 12/19/19 02/01/20 History hydrALAZINE TAB* [Apresoline TAB*] 10 mg PO TID 12/19/19 02/01/20 History Insulin Lispro [Humalog Kwikpen 0 unit SUBCUT .SEE INSTRUCTIONS 02/01/20 History 100 units/ml 3 ml x 5 Pens] Nystatin SUSPENSION* [Nystatin*] 100,000 unit MT QID 02/01/20 02/01/20 History Hospital Meds: Morphine Sulfate (Morphine Oral Concentrate*) 5 mg SL Q2H PRN PRN Reason: moderate pain or air hunger Last Admin: 02/03/20 08:59 Dose: 5 mg Ondansetron HCl (Zofran Inj*) 4 mg IV Q6H PRN PRN Reason: NAUSEA Allergies: No Known Allergies Allergy (Verified 12/19/19 11:47) Social History: Denied Alcohol, smoking. No IVDA. Family History: Negative for Dialysis, ESRD or Renal Transplant. Positive for HTN & DM Surgical History:Rt IJ TDC 12-Point Review of System obtained: Constitutional: Fever. Wt loss and change in mental status Eyes No red eye CV: No SOB at rest Respiratory: No cough no wheezing G.I: no diarrhea no nausea no vomiting no pain no blood per rectum no burning no obstruction symptoms Skin Sacral Ulcer Neurology Acute change in mental state and confusion Endocrine diabetes Hem/Lymphatic no bleeding no lymph nodes swelling Psych No hallucination Objective: Temp Pulse Resp BP Pulse Ox 97.4 F 59 19 101/39 100 02/03/20 05:45 02/03/20 05:45 02/03/20 08:59 02/03/20 05:45 02/03/20 05:45 10 Point multi system exam: Constitutional Was Confused, unresponsive today HEENT: No Conjunctivitis Abdomen Soft Abdomen No Ascites Heart: No LE Edema, No murmur Lungs: Gloria Extremities: No edema Back: Ugly looking infected Decubitus Ulcer Neurology Unresponsive Hem/Lymph: no palpable lymph nodes Laboratory Reviewed Sodium 139 mmol/L (135-145) 02/03/20 07:31 Potassium 5.1 mmol/L (3.5-5.0) H 02/03/20 07:31 BUN 129 mg/dL (6-24) H 02/03/20 07:31 Creatinine 5.36 mg/dL (0.67-1.17) H 02/03/20 07:31 Calcium 7.8 mg/dL (8.6-10.3) L 02/03/20 07:31 Magnesium 2.1 mg/dL (1.9-2.7) 02/02/20 07:37 AST 27 U/L (13-39) 02/02/20 07:37 ALT 41 U/L (7-52) 02/02/20 07:37 Assessment and Plan: ESRD but family wants only comfort measures I'll honor and respect their wishes and will oblige No HD. Case discussed with Hospitalist
--- NOTE | 2020-02-03 10:53 | OP ---
Operative Report - Blank - Operative Report Date of Operation: 02/02/20 Note: OPERATIVE REPORT Pre-op: Unstaged large sacral decubitus Post-Op: Stage 4 large sacral decubitus Procedure:Debridement of stage 4 sacral decubitus at bedside Surgeon: MD Gina Asst: none Anes: None IVF:NR EBL:200 cc's Specimen: Gram stain and culture Drain: Wound packed with saline gauze Wound: 4 Findings: Massive sacral ulcer with large amount of necrotic tissue extending to bone Done at bedside
[2020-02-03 11:08] VITALS: BP 101/37
--- NOTE | 2020-02-03 12:32 | DS ---
DATE OF ADMISSION: 02/01/2020. DATE OF DISCHARGE: 02/03/2020. PRIMARY CARE PHYSICIAN: Unknown. PRINCIPAL DIAGNOSES: 1. Severe sepsis secondary to infected stage 4 decubitus ulcer. 2. Enterococcus faecalis and E. coli bacteremia. SECONDARY DIAGNOSES: 1. End-stage renal disease with anemia of chronic disease. 2. Type 2 diabetes. 3. Hypertension. 4. Coronary artery disease. 5. Hypothyroidism. DISCHARGE MEDICATIONS: 1. Roxanol 5 mg sl q.2 hours prn pain or air hunger 2. Ativan 0.5 mg sl q.6 hours prn anxiety. 3. Tylenol 325 mg p.r. q.4 hours prn fever. HOSPITAL COURSE: Mr. Chacon is an 84-year-old male who had been a resident of [facility] since early December and was sent to emergency room from dialysis on 02/01/2020 with altered mental status and reported fever. The patient is reported to have off and on fever at [facility]. There was a questionable pneumonia on chest x-ray and he was started on antibiotics. Despite this, he continued to have a fever and his CRP climbed dramatically. The patient was at dialysis on 02/01/2020. It was noted that he was mildly hypotensive and altered; therefore, he was sent to the emergency room. The patient was admitted for severe sepsis secondary to an unclear cause initially. The patient was going to be tested for COVID-19; however, on 02/02/2020 when I evaluated the patient, I found a very large, 10 cm x 20 cm, pressure ulcer that was unstageable to his sacrum, buttocks, and lumbar spine. I then asked General Surgery to evaluate the patient for sharp debridement. Dr. Fuentes saw the patient and debrided what he described as a massive sacral ulcer with a large amount of necrotic tissue extending to bone. In addition to the decubitus ulcer, the patient was also found to be bacteremic. Blood cultures from admission grew enterococcus faecalis in all four bottles and E. coli in one out of four bottles. On 02/03/2020, the patient appeared to be even less responsive than the day prior. He was unable to speak. Given the extensive nature of the infected decubitus ulcer and bacteremia, I spoke with the patient' s about options. At this time, she has opted for the patient to be started on comfort measures only. This was felt to be an appropriate treatment course as the patient is unlikely to recover from his acute illness. The patient's family lives in [place] and therefore it was requested that the patient be discharged to [facility]. The patient's had already set up a lateral transfer to their facility for today. The bed was able to still be held so the patient can be discharged from [facility] to [facility] for comfort measures only. Again, COVID testing was cancelled as there was a clear source of infection leading to the patient's fever. All antibiotics and usual medications have been stopped. The patient will leave the hospital with just comfort medications in place. On the day of discharge, the patient does open his eyes to voice. He grunts, but does not verbalize any answers. His heart rate is regular. He does have a murmur. His lungs are clear anteriorly. He has a massive sacral and lumbar decubitus ulcer that is stage four with very foul smell. Dressing for this should be Dakin's soaked Kerlix packed into the wound daily. FOLLOW-UP CONCERNS: The patient is being discharged to [facility] today, 02/03/2020. ACTIVITY LEVEL: Bedrest. CONDITION ON DISCHARGE: Guarded. TIME SPENT: Thirty-five minutes were spent discharging this patient. [id number]/[facility] #: [id number] EDUAR
== END 2020-02-03 14:15 | DRG 853 ==
LOC: ED 12:09 → MED 14:45
PROVIDERS: ADMIT Hospitalist; ATTEND Hospitalist
PROC: 0QB10ZZ Excision of Sacrum, Open Approach (ICD-10-PCS; principal; 2020-02-02)
PROC: 30233N1 Transfusion of Nonautologous Red Blood Cells into Peripheral Vein, Percutaneous Approach (ICD-10-PCS; 2020-02-02)
DX: A41.81 Sepsis due to Enterococcus (principal); L89.614 Pressure ulcer of right heel, stage 4; N18.6 End stage renal disease; G93.41 Metabolic encephalopathy; I12.0 Hypertensive chronic kidney disease with stage 5 chronic kidney disease or end stage renal disease; I24.8 Other forms of acute ischemic heart disease; E87.2 Acidosis; L89.156 Pressure-induced deep tissue damage of sacral region; L89.146 Pressure-induced deep tissue damage of left lower back; Z66 Do not resuscitate; L89.326 Pressure-induced deep tissue damage of left buttock; D63.1 Anemia in chronic kidney disease; A41.51 Sepsis due to Escherichia coli [E. coli]; R65.20 Severe sepsis without septic shock; Z51.5 Encounter for palliative care; E11.22 Type 2 diabetes mellitus with diabetic chronic kidney disease; I95.9 Hypotension, unspecified; E03.9 Hypothyroidism, unspecified; E11.65 Type 2 diabetes mellitus with hyperglycemia; I25.10 Atherosclerotic heart disease of native coronary artery without angina pectoris; R01.1 Cardiac murmur, unspecified; R74.8 Abnormal levels of other serum enzymes; N40.0 Benign prostatic hyperplasia without lower urinary tract symptoms; Z96.652 Presence of left artificial knee joint; Z99.2 Dependence on renal dialysis; Z95.1 Presence of aortocoronary bypass graft; Z79.4 Long term (current) use of insulin; Z79.899 Other long term (current) drug therapy; Z87.891 Personal history of nicotine dependence
CPT/HCPCS: 36415; 71045; 80048; 80053; 80202; 82728; 83540; 83550; 83605; 83735; 83880; 84484; 85014; 85018; 85025; 85610; 85730; 86140; 86850; 86900; 86901; 86922; 87040; 87070; 87076; 87077; 87150; 87185; 87186; 87205; 87640; 87641; 93005; 99285; J0692; J1644; J2270; J3370; P9040; U0002